=== PATIENT | female | born 1960 | race Caucasian/White ===

== ENCOUNTER → 2017-01-06 | Outpatient (CLI) | payer OTHER ==
[~2017-01-06] MED LIST: ATV5 PO; B-CO1CAP3 PO; CALC500C70 PO; CHOL100010 PO; CZR25 PO; MULT-506 PO; OXYC7.5T78 PO; SULF800T23 PO; TRAZ100T29 PO; VLT/75 PO
== END | disposition home or self-care (01) ==
LOC: C.PAPS 12:42
PROVIDERS: ATTEND Family Medicine
DX: Z12.4 Encounter for screening for malignant neoplasm of cervix (principal)

== ENCOUNTER 2023-05-04 17:13 | Inpatient (IN) ==
[2023-05-04] MEDS ORDERED: STAT IV Infusion **Titration per Protocol STA ×6 (17:21→23:53)
[2023-05-04] MEDS ORDERED: SODIUM CHLORIDE 0.9% 1,000 ML IV STA (17:23)
[2023-05-04] MEDS ORDERED: CALCIUM GLUCONATE 1,000 MG/60 ML BAG IV STA (17:26)
[2023-05-04] MEDS ORDERED: DEXTROSE 50% 50 ML SYRINGE IV ONE (17:29)
[2023-05-04] MEDS ORDERED: NovoLIN-R INSULIN PER UNIT CHARGE IV STA (17:29)
[2023-05-04] MEDS ORDERED: SODIUM BICARB 8.4% INJ 50 MEQ/50 ML SYR IV STA (17:29)
[2023-05-04] MEDS ORDERED: EPINEPHrine/NSS 4 MG/254 ML BAG IV SCH (17:30)
[2023-05-04] MEDS: EPINEPHrine/NSS 4 MG/254 ML BAG IV SCH (17:36)
[2023-05-04 17:37] LABS: iSTAT Creatinine 0.7 mg/dl (0.6-1.3); iSTAT Hemoglobin 13.6 g/dl (12.0-16.0); iSTAT Ionized Calcium 0.81 mmol/l (1.12-1.32)
[2023-05-04] MEDS ORDERED: STAT IV/IM STA (17:44)
[2023-05-04] MEDS ORDERED: SODIUM BICARBONATE 8.4% 150 MEQ in DEXTROSE 5% 1,000 ML IV SCH (17:45)
[2023-05-04] MEDS ORDERED: SODIUM ZIRCONIUM CYCLOSILICATE 10 GM PACKET GT STA (17:47)
--- NOTE | 2023-05-04 17:59 | XRay Report ---
SINGLE VIEW CHEST CLINICAL HISTORY: Atypical chest pain. Cardiac arrest. Respiratory failure. FINDINGS: An AP, portable, supine chest radiograph is obtained. No prior studies are available for co mparison at the time of dictation. An endotracheal tube has been placed. The tip projects approximate ly 5 cm above the annmarie. An enteric tube has been placed. The tip extends below the diaphragm over t he stomach. The cardiac silhouette appears mildly enlarged. There is pulmonary vascular congestion. T here are mild bilateral airspace opacities. No large pleural effusion or pneumothorax is seen. The sk eletal structures are osteopenic. The bony thorax is grossly intact. IMPRESSION: 1. Endotracheal and enteric tubes have been placed as above. 2. Cardiomegaly with pulmonary vascular congestion. 3. Bilateral airspace opacities likely represent mild pulmonary edema. Correlate clinically for evide nce of a superimposed infectious/inflammatory pneumonitis. Radiographic follow-up to resolution is re commended ACT 112: Negative or not required by law. Electronically signed by: Raymon Wilson M.D. 05/04/2023 5:58 PM
[2023-05-04 18:00] LABS: iSTAT Arterial Blood Gas HCO3 20 meg/L (19-24); iSTAT Arterial Blood Gas pCO2 82 mmHg (35-46); iSTAT Arterial Blood Gas pO2 202 mmHg (80-95); iSTAT Carbon Dioxide 23 mmol/L (24-31); iSTAT Hematocrit 32 % (37-47); iSTAT Hemoglobin 10.9 g/dl (12.0-16.0); iSTAT Potassium 3.4 mmol/L (3.3-5.0); iSTAT Sodium 127 mmol/L (135-144)
[2023-05-04 18:16] LABS: Appearance Urine Clear (Clear); Bacteria Urine Automated Negative (Negative); Bilirubin Urine Negative (Negative); Blood Urine 1+ (Negative); Color Urine Dark Yellow; Glucose Urine UA Trace (Negative); Ketones Urine 1+ (Negative); Leukocyte Esterase Urine Negative (Negative); Nitrite Urine Negative (Negative); Protein Urine 2+ (Negative); Specific Gravity Urine 1.016 (1.000-1.030); Urobilinogen Urine Negative (Negative)
[2023-05-04] MEDS: MAGNESIUM SULFATE / D5W 1 GM/100 ML BAG IV SCH ×2 (18:20→18:48)
--- NOTE | 2023-05-04 18:31 | History & Physical Report ---
Date of Service May 04, 2023 Assessment & Plan (1) Admitted to intensive care unit: (2) Cardiac arrest: (3) Alcohol use disorder: (4) Megaloblastic anemia due to alcoholism: (5) Thrombocytopenia: (6) Abnormal LFTs: (7) COVID-19 virus antibody negative: (8) Elevated troponin: Plan Admit to intensive care unit status postcardiac arrest- ROSC Hypothermic protocol Continue multiple IV pressors per ICU Pantoprazole 40 mg IV daily IV fluid rehydration with lactated Ringer's normal saline with potassium Thiamine IV and folic acid IV Keppra IV for seizure prophylaxis History of Present Illness Chief Complaint: The patient was brought to the emergency department by EMS, after being found unresponsive at home, with family reports that the patient has been going through alcohol withdrawal and refused to come to the hospital Primary Care Provider: Carol Terrell The patient is a 62-year-old female with past medical history of alcohol abuse and alcohol withdrawal. She had been found unresponsive at home, with family reported that she had been going through alcohol withdrawal and had refused to come to the hospital. She was noted to have seizure-like activity while in bed, and then became unresponsive. Family called 911, and was shocked by the AED brought in by police. Upon arrival in the ED, patient was asystolic, with epinephrine IV having been administered x 4 prior to arrival. Patient had been intubated, in addition received IV bicarbonate, IV magnesium, 1 episode of torsades. She was noted to have lost pulse several times, and then remained tachycardic and referred for evaluation for medical admission to the ICU. Laboratories are still pending at the time of admission, with admission being expedited to the ICU for further care Allergies Allergy/AdvReac Type Severity Reaction Status Date / Time nafcillin Allergy Intermediate RASH-PER Verified 05/04/23 17:30 [facility] RECORD Benzodiazepines AdvReac Intermediate AMNESIA-ATIVAN Verified 05/04/23 17:30 PER [facility] RECORD Home Medications Medication Instructions Recorded Confirmed Type Unobtainable 05/04/23 05/04/23 History Past Med/Surg History Social History Smoking Status: Unknown if ever smoked Hx Substance Use: Yes (alcohol) Review of Systems Review of Systems: HPI and ROS are limited due to patient status Physical Exam Physical Exam: The patient is sedated, intubated on ventilator HEENT--PERRL, EOMI, mucous membranes and oropharynx dry. Neck--supple. No JVD. No bruits. Thyroid normal, trachea midline, no adenopathy. Heart--tachycardic Lungs--few coarse breath sounds bilaterally Abdomen--normal bowel sounds and soft. Extremities-- No edema. Dermatologic--normal skin turgor, normal color, no abnormal lymph nodes, no rash. Neurologic--limited exam Rheumatologic--limited exam Psychiatric--sedated and intubated Results & Data Results & Data Vital Signs (Past 12 Hours) Vital Signs Temp Pulse Pulse Resp BP BP Pulse Ox 05/04/23 18:25 100 05/04/23 18:21 100 05/04/23 18:11 05/04/23 18:02 126 H 05/04/23 18:01 28 H 05/04/23 17:55 103/68 05/04/23 17:55 36.6 C 126 H 28 H 100 05/04/23 17:53 36.6 C 124 H 28 H 99 05/04/23 17:53 66/38 L 05/04/23 17:50 64/38 L 05/04/23 17:50 36.6 C 119 H 28 H 100 05/04/23 17:45 122 H 23 100 05/04/23 17:45 92/59 L 05/04/23 17:40 118 H 22 99 05/04/23 17:40 124/78 05/04/23 17:40 120 H 22 134/79 98 05/04/23 17:39 134/79 05/04/23 17:39 104 H 13 98 05/04/23 17:35 142 H 7 L 05/04/23 17:30 70 22 35 L 05/04/23 17:25 122 H 22 99 05/04/23 17:23 64 05/04/23 17:22 122 H 17 80 L 05/04/23 17:20 143 H 16 05/04/23 17:19 145 H 14 O2 Del Method FiO2 05/04/23 18:25 70 05/04/23 18:21 Mechanical Vent 05/04/23 18:11 Mechanical Vent 05/04/23 18:02 05/04/23 18:01 100 05/04/23 17:55 05/04/23 17:55 05/04/23 17:53 05/04/23 17:53 05/04/23 17:50 05/04/23 17:50 05/04/23 17:45 05/04/23 17:45 05/04/23 17:40 05/04/23 17:40 05/04/23 17:40 Mechanical Vent 05/04/23 17:39 05/04/23 17:39 05/04/23 17:35 05/04/23 17:30 05/04/23 17:25 100 05/04/23 17:23 05/04/23 17:22 100 05/04/23 17:20 05/04/23 17:19 Code Status & VTE Plan Code Status Full code VTE Prophylaxis Plan VTE Prophylaxis will be ordered: Yes Critical Care Time 40 minutes PG Care Time/CCT Total # of Minutes Spent Total Time Spent with Patient: Total time spent is greater than 50% in coordination of care (as documented) at patient's floor/unit and/or counseling patient: Coding Level of Care Code 09759 INT INP/OBS CARE 3/75MIN Diagnoses Admitted to intensive care unit Z78.9 Cardiac arrest I46.9 Alcohol use disorder F10.90 Megaloblastic anemia due to alcoholism D53.1 Thrombocytopenia D69.6 Abnormal LFTs R79.89 COVID-19 virus antibody negative Z01.84 Elevated troponin R79.89
[2023-05-04 18:35] LABS: iSTAT Arterial Blood Gas HCO3 18 meg/L (19-24); iSTAT Arterial Blood Gas pCO2 47 mmHg (35-46); iSTAT Arterial Blood Gas pH 7.19 (7.35-7.45); iSTAT Arterial Blood Gas pO2 > 420 mmHg (80-95); iSTAT Carbon Dioxide 20 mmol/L (24-31); iSTAT Hematocrit 33 % (37-47); iSTAT Hemoglobin 11.2 g/dl (12.0-16.0); iSTAT Potassium 2.4 mmol/L (3.3-5.0); iSTAT Sodium 132 mmol/L (135-144)
[2023-05-04 18:47] LABS: INR 1.4 (0.9-1.1); Partial Thromboplastin Ratio 1.6; Partial Thromboplastin Time 45 Seconds (21-31); Prothrombin Time 15.2 Seconds (9.0-12.0)
[2023-05-04] MEDS: POTASSIUM CHLORIDE / WTR 10 MEQ/100 ML PLCT IV SCH ×2 (18:49→20:00)
--- NOTE | 2023-05-04 18:53 | Emergency Department Note ---
Impression & Plan Cardiac arrest, Anoxic brain injury ED Provider Note CHIEF COMPLAINT: Cardiac arrest HISTORY OF PRESENT ILLNESS: This 62-year-old female patient with past medical history of alcohol abuse presents to the emergency department after becoming unresponsive at home. The patient was apparently "going through alcohol withdrawal" and refused to come to the hospital per her family. She was lying in bed, had some sudden seizure-like activity and became unresponsive. Family called 911, the patient was shocked by the AED that police came with. Upon EMS arrival, the patient was noted to be asystolic. CPR was in progress and IV epinephrine was administered x 4 prior to arrival. By my medical command, the patient was given IV bicarb and magnesium. She did have an episode of torsades in route and was shocked. Patient lost her pulse on several occasions. Patient arrives with a palpable pulse, intubated with a Saurabh still in place, but on hold. REVIEW OF SYSTEMS: A review of systems was performed with positives and pertinent negatives listed in the history of present illness. 10 systems were reviewed and are otherwise negative. ALLERGIES: see below MEDICATIONS: see below PMH: see below SOCIAL HISTORY: see below DDx: Pulmonary embolus, electrolyte abnormality, dehydration, alcohol withdrawal, seizure, cardiac arrhythmia among others. PHYSICAL EXAM: Vital signs reviewed. General: Critically ill 62-year-old female, intubated and unresponsive HEENT: No scleral icterus, pupils are essentially nonreactive, neck supple. Atraumatic. Cardiovascular: Distant heart tones, barely audible. Palpable left femoral pulse Pulmonary: Clear to auscultation bilaterally, normal work of breathing. Abdomen: Soft, nontender, nondistended, positive bowel sounds. Musculoskeletal: Atraumatic, no peripheral edema. Cachectic Neurologic: Unresponsive Skin: Warm, dry, no rash EMERGENCY DEPARTMENT COURSE/MDM: This patient was evaluated and appeared to be in no significant distress. IV access was obtained and laboratory work was drawn. The patient was placed on the panel monitor noted to be in a tachycardic rhythm, wide-complex. Pulses were palpated. The patient did quickly lose her pulse during her assessments. chest compressions were reinitiated. Patient is noted to be in a wide-complex tachycardia on EKG. Bedside ultrasound was used to evaluate cardiac function, does not appear to be in cardiac tamponade. There is minimal ejection fraction noted with cardiac activity. IV epinephrine drip was initiated with the assistance of the clinical pharmacist. Patient did receive treatment for hyperkalemia based on i-STAT labs. Patient's potassium was 7. IV D50, IV regular insulin 10 units, calcium gluconate were administered. IV hydration was in progress with normal saline solution. ABG was performed at the bedside by respiratory therapy and the potassium was noted to be normal. Adjustments were made to the patient's ventilator. Repeat ABG was performed and the potassium was noted to be low. 20 mEq of IV potassium was ordered intravenously. In retrospect the i-STAT labs were likely hemolyzed and inaccurate. Potassium on laboratory work is 2.2. Patient is noted to be hyponatremic due to the nature of the arrest, a code artic was ordered. Patient's case was discussed with Dr. Brasher of the intensive care unit. [facility] was consulted as well, Dr. Turcios. CT imaging of the head was performed and reveals findings consistent with anoxic brain injury. Chest CT was performed and reveals no PE, fractured ribs, likely cirrhosis with ascites. At the request of the intensive care service, Dr. Phillips of the interventional cardiology team was consulted. He did review the patient's EKG. He feels the patient can be stabilized overnight and he will evaluate for the possibility of the Lease Administrator tomorrow morning. Patient's family was updated as to the findings and plan of care. She remains critically ill and they have expressed an understanding. MONITORING: An order for cardiac monitoring was placed and the patient is noted to be in a sinus tachycardia at 143 beats per minute. RADIOLOGY: Chest x-ray to my interpretation reveals ET tube in good position, pulmonary vascular congestion. Head CT to my review and radiology's over read reveals evidence of anoxic brain injury and bilateral basal ganglia infarcts Chest CT per radiology reveals no evidence of PE, there is evidence of rib fractures, likely cirrhosis of the liver with ascites. Please see final reads below. EKG: To my interpretation reveals a sinus tachycardia at 148 bpm. Wide-complex with intraventricular conduction block, left axis deviation. Nonspecific ST changes. DISPOSITION: Admission I have personally spent greater than 75 minutes of critical care time in the direct management of this patient. This includes bedside care, interpretation of diagnostic studies, and testing, discussion with consultants, patient, and family members, and other required patient management activities. This 75 minutes is in excess of all separately billable procedures. Past Med/Surg History Medical History (Updated 05/07/23 @ 11:01 by Lizzie Vail MD) ETOH abuse Seizure (12/06/13) Right foot pain Osteomyelitis Leg pain, right Leg pain, right Hypokalemia Dehydration Alcohol withdrawal Family History Other Heart disease Hypertension Social History Smoking Status: Unknown if ever smoked Preferred Language: Serbian Communication Ability: Unable Business System Consultant Required: No Beliefs That Will Affect Care: None marital status: Current Living Situation: Spouse Current Living Situation Comment: Feels safe at home current occupational status: unemployed Feels Safe at Home: Yes Allergies Allergies Allergy/AdvReac Type Severity Reaction Status Date / Time cephalexin Allergy Intermediate HIVES Verified 05/05/23 08:27 nafcillin Allergy Unknown unknown Verified 05/05/23 08:27 Benzodiazepines AdvReac Severe CHANGE IN Verified 05/05/23 08:27 MENTAL STATUS tramadol AdvReac Unknown HALLUCINATI Unverified 05/05/23 08:27 ONS Home Meds Home Medications Medication Instructions Recorded Confirmed multivitamin 1 tab PO QAM #0 tabs 10/02/14 01/24/20 Quercetin 1,000 mg PO DAILY 01/24/20 01/24/20 cholecalciferol (vitamin D3) 10 10 mcg PO DAILY 01/24/20 01/24/20 mcg (400 unit) tablet gabapentin 300 mg capsule 300 mg PO HS 01/24/20 01/24/20 hydroxyzine pamoate 50 mg capsule 50 mg PO TID PRN Anxiety 01/24/20 01/24/20 zinc 50 mg tablet 50 mg PO DAILY 01/24/20 01/24/20 Unobtainable 05/04/23 05/04/23 Previous Rx's Medication Instructions Recorded oxycodone 5 mg tablet 5 mg PO Q4H PRN pain #15 tabs 01/24/20 Results & Data (ED) Vital Signs Vital Signs - 24 hr 05/04/23 17:19 05/04/23 17:20 05/04/23 17:22 Temperature Pulse Rate 145 H 143 H 122 H Pulse Rate [Radial] Pulse Rate from SpO2 Sensor Respiratory Rate 14 16 17 Blood Pressure Blood Pressure [Left Arm] Blood Pressure Mean Blood Pressure Mean [Left Arm] Pulse Oximetry 80 L Oxygen Delivery Method Fraction of Inspired Oxygen 100 Sepsis Recent Fever Within 48 Hours Sepsis New/Unexplained Change in Mental Status Sepsis Action Taken by Nursing End-Tidal CO2 47 61 60 05/04/23 17:23 05/04/23 17:25 05/04/23 17:30 Temperature Pulse Rate 64 122 H 70 Pulse Rate [Radial] Pulse Rate from SpO2 Sensor 158 H Respiratory Rate 22 22 Blood Pressure Blood Pressure [Left Arm] Blood Pressure Mean Blood Pressure Mean [Left Arm] Pulse Oximetry 99 35 L Oxygen Delivery Method Fraction of Inspired Oxygen 100 Sepsis Recent Fever Within 48 Hours No Sepsis New/Unexplained Change in Mental Status Yes Sepsis Action Taken by Nursing No Action Required End-Tidal CO2 53 13 05/04/23 17:35 05/04/23 17:39 05/04/23 17:39 Temperature Pulse Rate 142 H 104 H Pulse Rate [Radial] Pulse Rate from SpO2 Sensor 103 H Respiratory Rate 7 L 13 Blood Pressure 134/79 Blood Pressure [Left Arm] Blood Pressure Mean 115 Blood Pressure Mean [Left Arm] Pulse Oximetry 98 Oxygen Delivery Method Fraction of Inspired Oxygen Sepsis Recent Fever Within 48 Hours Sepsis New/Unexplained Change in Mental Status Sepsis Action Taken by Nursing End-Tidal CO2 49 52 05/04/23 17:40 05/04/23 17:40 05/04/23 17:40 Temperature Pulse Rate 118 H Pulse Rate [Radial] 120 H Pulse Rate from SpO2 Sensor 117 H Respiratory Rate 22 22 Blood Pressure 124/78 Blood Pressure [Left Arm] 134/79 Blood Pressure Mean 79 Blood Pressure Mean [Left Arm] 97 Pulse Oximetry 98 99 Oxygen Delivery Method Mechanical Vent Fraction of Inspired Oxygen Sepsis Recent Fever Within 48 Hours Sepsis New/Unexplained Change in Mental Status Sepsis Action Taken by Nursing End-Tidal CO2 60 05/04/23 17:45 05/04/23 17:45 05/04/23 17:50 Temperature 36.6 C Pulse Rate 122 H 119 H Pulse Rate [Radial] Pulse Rate from SpO2 Sensor 122 H 69 Respiratory Rate 23 28 H Blood Pressure 92/59 L Blood Pressure [Left Arm] Blood Pressure Mean 62 Blood Pressure Mean [Left Arm] Pulse Oximetry 100 100 Oxygen Delivery Method Fraction of Inspired Oxygen Sepsis Recent Fever Within 48 Hours Sepsis New/Unexplained Change in Mental Status Sepsis Action Taken by Nursing End-Tidal CO2 52 38 05/04/23 17:50 05/04/23 17:53 05/04/23 17:53 Temperature 36.6 C Pulse Rate 124 H Pulse Rate [Radial] Pulse Rate from SpO2 Sensor 89 Respiratory Rate 28 H Blood Pressure 64/38 L 66/38 L Blood Pressure [Left Arm] Blood Pressure Mean 45 43 Blood Pressure Mean [Left Arm] Pulse Oximetry 99 Oxygen Delivery Method Fraction of Inspired Oxygen Sepsis Recent Fever Within 48 Hours Sepsis New/Unexplained Change in Mental Status Sepsis Action Taken by Nursing End-Tidal CO2 39 05/04/23 17:55 05/04/23 17:55 05/04/23 18:00 Temperature 36.6 C Pulse Rate 126 H Pulse Rate [Radial] Pulse Rate from SpO2 Sensor 126 H Respiratory Rate 28 H Blood Pressure 103/68 135/92 Blood Pressure [Left Arm] Blood Pressure Mean 76 98 Blood Pressure Mean [Left Arm] Pulse Oximetry 100 Oxygen Delivery Method Fraction of Inspired Oxygen Sepsis Recent Fever Within 48 Hours Sepsis New/Unexplained Change in Mental Status Sepsis Action Taken by Nursing End-Tidal CO2 41 05/04/23 18:00 05/04/23 18:01 05/04/23 18:02 Temperature 36.4 C L Pulse Rate 126 H 126 H Pulse Rate [Radial] Pulse Rate from SpO2 Sensor 126 H Respiratory Rate 28 H 28 H Blood Pressure Blood Pressure [Left Arm] Blood Pressure Mean Blood Pressure Mean [Left Arm] Pulse Oximetry 100 Oxygen Delivery Method Fraction of Inspired Oxygen 100 Sepsis Recent Fever Within 48 Hours Sepsis New/Unexplained Change in Mental Status Sepsis Action Taken by Nursing End-Tidal CO2 37 05/04/23 18:05 05/04/23 18:05 05/04/23 18:10 Temperature 36.1 C L Pulse Rate 130 H Pulse Rate [Radial] Pulse Rate from SpO2 Sensor 128 H Respiratory Rate 26 H Blood Pressure 149/105 H 164/114 H Blood Pressure [Left Arm] Blood Pressure Mean 117 129 Blood Pressure Mean [Left Arm] Pulse Oximetry 93 Oxygen Delivery Method Fraction of Inspired Oxygen Sepsis Recent Fever Within 48 Hours Sepsis New/Unexplained Change in Mental Status Sepsis Action Taken by Nursing End-Tidal CO2 38 05/04/23 18:10 05/04/23 18:11 05/04/23 18:15 Temperature 35.8 C L Pulse Rate 129 H Pulse Rate [Radial] Pulse Rate from SpO2 Sensor 129 H Respiratory Rate 26 H Blood Pressure 147/118 H Blood Pressure [Left Arm] Blood Pressure Mean 135 Blood Pressure Mean [Left Arm] Pulse Oximetry 100 Oxygen Delivery Method Mechanical Vent Fraction of Inspired Oxygen Sepsis Recent Fever Within 48 Hours Sepsis New/Unexplained Change in Mental Status Sepsis Action Taken by Nursing End-Tidal CO2 33 05/04/23 18:15 05/04/23 18:20 05/04/23 18:20 Temperature 35.6 C L 35.4 C L Pulse Rate 125 H 121 H Pulse Rate [Radial] Pulse Rate from SpO2 Sensor 125 H 122 H Respiratory Rate 26 H 30 H Blood Pressure 155/105 H Blood Pressure [Left Arm] Blood Pressure Mean 120 Blood Pressure Mean [Left Arm] Pulse Oximetry 100 100 Oxygen Delivery Method Fraction of Inspired Oxygen Sepsis Recent Fever Within 48 Hours Sepsis New/Unexplained Change in Mental Status Sepsis Action Taken by Nursing End-Tidal CO2 33 31 05/04/23 18:21 05/04/23 18:25 05/04/23 18:25 Temperature Pulse Rate Pulse Rate [Radial] Pulse Rate from SpO2 Sensor Respiratory Rate Blood Pressure 159/107 H Blood Pressure [Left Arm] Blood Pressure Mean 123 Blood Pressure Mean [Left Arm] Pulse Oximetry 100 100 Oxygen Delivery Method Mechanical Vent Fraction of Inspired Oxygen 70 Sepsis Recent Fever Within 48 Hours Sepsis New/Unexplained Change in Mental Status Sepsis Action Taken by Nursing End-Tidal CO2 33 05/04/23 18:25 05/04/23 18:30 05/04/23 18:30 Temperature 35.3 C L 35.2 C L Pulse Rate 120 H 117 H Pulse Rate [Radial] Pulse Rate from SpO2 Sensor 121 H 118 H Respiratory Rate 29 H 20 Blood Pressure 148/99 H Blood Pressure [Left Arm] Blood Pressure Mean 111 Blood Pressure Mean [Left Arm] Pulse Oximetry 100 100 Oxygen Delivery Method Fraction of Inspired Oxygen Sepsis Recent Fever Within 48 Hours Sepsis New/Unexplained Change in Mental Status Sepsis Action Taken by Nursing End-Tidal CO2 33 29 Home Medications Current Medication List: was personally reviewed by me Laboratory Data Attestation: I reviewed the patient's lab results. 05/05/23 14:39 05/05/23 08:29 Lab Results 05/04/23 05/04/23 05/04/23 Range/Units 17:20 17:25 17:30 WBC Cancelled RBC Cancelled Hgb Cancelled POC Hgb 13.6 (12.0-16.0) g/dl Hct Cancelled POC Hct 40 (37-47) % MCV Cancelled MCH Cancelled MCHC Cancelled RDW Std Deviation Cancelled RDW Coeff of Zach Cancelled Plt Count Cancelled MPV Cancelled Immature Gran % (Auto) Cancelled Neut % (Auto) Cancelled Lymph % (Auto) Cancelled [place] % (Auto) Cancelled Eos % (Auto) Cancelled Baso % (Auto) Cancelled Neut # (Auto) Cancelled Lymph # (Auto) Cancelled [place] # (Auto) Cancelled Eos # (Auto) Cancelled Baso # (Auto) Cancelled Immature Gran # (Auto) Cancelled Absolute Nucleated RBC Cancelled Nucleated RBC % (auto) Cancelled Neutrophils % (Manual) Cancelled Band Neutrophils % Cancelled Lymphocytes % (Manual) Cancelled Prolymphocyte % Cancelled Reactive Lymphs % (Man) Cancelled Monocytes % (Manual) Cancelled Eosinophils % (Manual) Cancelled Basophils % (Manual) Cancelled Metamyelocytes % (Man) Cancelled Myelocytes % (Man) Cancelled Promyelocytes % (Man) Cancelled Blast Cells % (Manual) Cancelled Plasma Cell % (Manual) Cancelled Other Cells % Cancelled Nucleated RBC % Cancelled Neutrophils # (Manual) Cancelled Band Neutrophils # Cancelled Total Absolute Neuts Cancelled Lymphocytes # (Manual) Cancelled Prolymphocyte # Cancelled Reactive Lymphs # Cancelled Total Abs Lymphocytes Cancelled Monocytes # (Manual) Cancelled Eosinophils # (Manual) Cancelled Basophils # (Manual) Cancelled Metamyelocytes # (Man) Cancelled Myelocytes # (Manual) Cancelled Promyelocytes # (Man) Cancelled Blast Cells # (Man) Cancelled Plasma Cell # (Manual) Cancelled Other Cells # Cancelled Nucleated RBCs # (Man) Cancelled Hypersegmented Neuts Cancelled Hyposegmented Neuts Cancelled Hypogranular Neuts Cancelled Large Granular Lymphs Cancelled # Lrg Granular Lymphs Cancelled Hairy Cells Cancelled Smudge Cells Cancelled Toxic Granulation Cancelled Toxic Vacuolation Cancelled Dohle Bodies Cancelled Lawanda Rods Cancelled Platelet Estimate Cancelled Hypogranular Platelets Cancelled Giant Platelets Cancelled Platelet Satelliting Cancelled RBC Morphology Cancelled Polychromasia Cancelled Hypochromasia Cancelled Poikilocytosis Cancelled Basophilic Stippling Cancelled Anisocytosis Cancelled Microcytosis Cancelled Macrocytosis Cancelled Spherocytes Cancelled Pappenheimer Bodies Cancelled Sickle Cells Cancelled Target Cells Cancelled Tear Drop Cells Cancelled Ovalocytes Cancelled Stomatocytes Cancelled Schultz-Dod[place] Branch Bodies Cancelled Echinocytes Cancelled Acanthocytes (Spur) Cancelled Rouleaux Cancelled RBC Agglutinates Cancelled Schistocytes Cancelled Sezary Cell Cancelled PT Cancelled INR Cancelled APTT Cancelled PTT Ratio Cancelled Fibrinogen (184-400) mg/dl POC pH (7.35-7.45) POC pCO2 (35-46) mmHg POC pO2 (80-95) mmHg POC HCO3 (19-24) glenn/L POC Base Excess (-9-1.8) glenn/L POC ABG O2 Sat (90-95) % POC Sodium 124 L (135-144) mmol/L Sodium Cancelled POC Potassium 7.0 H* (3.3-5.0) mmol/L Potassium Cancelled POC Chloride 95 L (101-112) mmol/L Chloride Cancelled Carbon Dioxide Cancelled POC Total CO2 20 L (24-31) mmol/L Anion Gap Cancelled POC Anion Gap 18.0 (16-25) mmol/L POC BUN 9 (7-18) mg/dl BUN Cancelled Creatinine Cancelled POC Creatinine 0.7 (0.6-1.3) mg/dl Est Cr Clr Drug Dosing Cancelled Est GFR ( Amer) Cancelled Est GFR (Non-Af Amer) Cancelled BUN/Creatinine Ratio Cancelled Glucose Cancelled POC Glucose (other) 248 H (70-99) mg/dl Calcium Cancelled POC Ioniz Calcium [place] 0.81 L (1.12-1.32) mmol/l Phosphorus Cancelled Magnesium Cancelled Total Bilirubin Cancelled AST Cancelled ALT Cancelled Alkaline Phosphatase Cancelled Troponin I High Sens Cancelled Total Protein Cancelled Albumin Cancelled Globulin Cancelled Albumin/Globulin Ratio Cancelled Lipase Cancelled Urine Color Dark Yellow Urine Appearance Clear (Clear) Urine pH 6.0 (4.5-7.5) Ur Specific [place] 1.016 (1.000-1.030) Urine Protein 2+ H (Negative) Urine Glucose (UA) Trace H (Negative) Urine Ketones 1+ H (Negative) Urine Blood 1+ H (Negative) Urine Nitrite Negative (Negative) Urine Bilirubin Negative (Negative) Urine Urobilinogen Negative (Negative) Ur Leukocyte Esterase Negative (Negative) Urine WBC (Auto) 1-5 (0-5) /hpf Urine RBC (Auto) 5-10 H (0-4) /hpf U Hyaline Cast (Auto) 1-5 (0-5) /lpf U Epithel Cells (Auto) 10-20 H (0-5) /lpf Urine Bacteria (Auto) Negative (Negative) SARS-CoV-2 (PCR) (Negative) Blood Parasites ID Cancelled Blood Type Antibody Screen Antibody Identification Antibody ID Comment Crossmatch 05/04/23 05/04/23 05/04/23 Range/Units 17:46 17:58 17:59 WBC 10.27 RBC 3.11 L Hgb 10.7 L POC Hgb 10.9 L (12.0-16.0) g/dl Hct 32.9 L POC Hct 32 L (37-47) % MCV 105.8 H MCH 34.4 H MCHC 32.5 RDW Std Deviation 46.3 RDW Coeff of Zach 11.9 Plt Count 57 L MPV 11.5 Immature Gran % (Auto) 4.0 Neut % (Auto) 73.6 Lymph % (Auto) 20.3 [place] % (Auto) 1.5 Eos % (Auto) 0.3 Baso % (Auto) 0.3 Neut # (Auto) 7.57 H Lymph # (Auto) 2.08 [place] # (Auto) 0.15 Eos # (Auto) 0.03 Baso # (Auto) 0.03 Immature Gran # (Auto) 0.41 H Absolute Nucleated RBC 0.02 Nucleated RBC % (auto) 0.2 Neutrophils % (Manual) Band Neutrophils % Lymphocytes % (Manual) Prolymphocyte % Reactive Lymphs % (Man) Monocytes % (Manual) Eosinophils % (Manual) Basophils % (Manual) Metamyelocytes % (Man) Myelocytes % (Man) Promyelocytes % (Man) Blast Cells % (Manual) Plasma Cell % (Manual) Other Cells % Nucleated RBC % Neutrophils # (Manual) Band Neutrophils # Total Absolute Neuts Lymphocytes # (Manual) Prolymphocyte # Reactive Lymphs # Total Abs Lymphocytes Monocytes # (Manual) Eosinophils # (Manual) Basophils # (Manual) Metamyelocytes # (Man) Myelocytes # (Manual) Promyelocytes # (Man) Blast Cells # (Man) Plasma Cell # (Manual) Other Cells # Nucleated RBCs # (Man) Hypersegmented Neuts Hyposegmented Neuts Hypogranular Neuts Large Granular Lymphs # Lrg Granular Lymphs Hairy Cells Smudge Cells Toxic Granulation Toxic Vacuolation Dohle Bodies Lawanda Rods Platelet Estimate Hypogranular Platelets Giant Platelets Platelet Satelliting RBC Morphology Polychromasia Hypochromasia Poikilocytosis Basophilic Stippling Anisocytosis Microcytosis Macrocytosis Spherocytes Pappenheimer Bodies Sickle Cells Target Cells Tear Drop Cells Ovalocytes Stomatocytes Schultz-Dod[place] Branch Bodies Echinocytes Acanthocytes (Spur) Rouleaux RBC Agglutinates Schistocytes Sezary Cell PT 15.2 H INR 1.4 H APTT 45 H PTT Ratio 1.6 Fibrinogen 112 L (184-400) mg/dl POC pH 7.00 L* (7.35-7.45) POC pCO2 82 H (35-46) mmHg POC pO2 202 H (80-95) mmHg POC HCO3 20 (19-24) glenn/L POC Base Excess -11.0 L (-9-1.8) glenn/L POC ABG O2 Sat 99.0 H (90-95) % POC Sodium 127 L (135-144) mmol/L Sodium 131 L POC Potassium 3.4 (3.3-5.0) mmol/L Potassium 3.0 L POC Chloride (101-112) mmol/L Chloride 94 L Carbon Dioxide 20 L POC Total CO2 23 L (24-31) mmol/L Anion Gap 17 H POC Anion Gap (16-25) mmol/L POC BUN (7-18) mg/dl BUN 10 Creatinine 0.82 POC Creatinine (0.6-1.3) mg/dl Est Cr Clr Drug Dosing 81.1 Est GFR ( Amer) 87.6 Est GFR (Non-Af Amer) 75.6 BUN/Creatinine Ratio 12.2 Glucose 364 H* POC Glucose (other) (70-99) mg/dl Calcium 9.8 POC Ioniz Calcium [place] (1.12-1.32) mmol/l Phosphorus 9.3 H Magnesium 2.9 H Total Bilirubin 1.1 H AST 361 H ALT 136 H Alkaline Phosphatase 62 Troponin I High Sens 965.4 H* Total Protein 5.4 L Albumin 2.9 L Globulin 2.5 Albumin/Globulin Ratio 1.2 Lipase 155 H Urine Color Urine Appearance (Clear) Urine pH (4.5-7.5) Ur Specific [place] (1.000-1.030) Urine Protein (Negative) Urine Glucose (UA) (Negative) Urine Ketones (Negative) Urine Blood (Negative) Urine Nitrite (Negative) Urine Bilirubin (Negative) Urine Urobilinogen (Negative) Ur Leukocyte Esterase (Negative) Urine WBC (Auto) (0-5) /hpf Urine RBC (Auto) (0-4) /hpf U Hyaline Cast (Auto) (0-5) /lpf U Epithel Cells (Auto) (0-5) /lpf Urine Bacteria (Auto) (Negative) SARS-CoV-2 (PCR) (Negative) Blood Parasites ID Blood Type A Negative Antibody Screen POSITIVE A Antibody Identification Anti-D Antibody ID Comment Crossmatch See Detail 05/04/23 05/04/23 Range/Units 18:00 18:20 WBC RBC Hgb POC Hgb 11.2 L (12.0-16.0) g/dl Hct POC Hct 33 L (37-47) % MCV MCH MCHC RDW Std Deviation RDW Coeff of Zach Plt Count MPV Immature Gran % (Auto) Neut % (Auto) Lymph % (Auto) [place] % (Auto) Eos % (Auto) Baso % (Auto) Neut # (Auto) Lymph # (Auto) [place] # (Auto) Eos # (Auto) Baso # (Auto) Immature Gran # (Auto) Absolute Nucleated RBC Nucleated RBC % (auto) Neutrophils % (Manual) Band Neutrophils % Lymphocytes % (Manual) Prolymphocyte % Reactive Lymphs % (Man) Monocytes % (Manual) Eosinophils % (Manual) Basophils % (Manual) Metamyelocytes % (Man) Myelocytes % (Man) Promyelocytes % (Man) Blast Cells % (Manual) Plasma Cell % (Manual) Other Cells % Nucleated RBC % Neutrophils # (Manual) Band Neutrophils # Total Absolute Neuts Lymphocytes # (Manual) Prolymphocyte # Reactive Lymphs # Total Abs Lymphocytes Monocytes # (Manual) Eosinophils # (Manual) Basophils # (Manual) Metamyelocytes # (Man) Myelocytes # (Manual) Promyelocytes # (Man) Blast Cells # (Man) Plasma Cell # (Manual) Other Cells # Nucleated RBCs # (Man) Hypersegmented Neuts Hyposegmented Neuts Hypogranular Neuts Large Granular Lymphs # Lrg Granular Lymphs Hairy Cells Smudge Cells Toxic Granulation Toxic Vacuolation Dohle Bodies Lawanda Rods Platelet Estimate Hypogranular Platelets Giant Platelets Platelet Satelliting RBC Morphology Polychromasia Hypochromasia Poikilocytosis Basophilic Stippling Anisocytosis Microcytosis Macrocytosis Spherocytes Pappenheimer Bodies Sickle Cells Target Cells Tear Drop Cells Ovalocytes Stomatocytes Schultz-Dodson Branch Bodies Echinocytes Acanthocytes (Spur) Rouleaux RBC Agglutinates Schistocytes Sezary Cell PT INR APTT PTT Ratio Fibrinogen (184-400) mg/dl POC pH 7.19 L* (7.35-7.45) POC pCO2 47 H (35-46) mmHg POC pO2 > 420 H (80-95) mmHg POC HCO3 18 L (19-24) glenn/L POC Base Excess -10.0 L (-9-1.8) glenn/L POC ABG O2 Sat 100.0 H (90-95) % POC Sodium 132 L (135-144) mmol/L Sodium POC Potassium 2.4 L* (3.3-5.0) mmol/L Potassium POC Chloride (101-112) mmol/L Chloride Carbon Dioxide POC Total CO2 20 L (24-31) mmol/L Anion Gap POC Anion Gap (16-25) mmol/L POC BUN (7-18) mg/dl BUN Creatinine POC Creatinine (0.6-1.3) mg/dl Est Cr Clr Drug Dosing Est GFR ( Amer) Est GFR (Non-Af Amer) BUN/Creatinine Ratio Glucose POC Glucose (other) (70-99) mg/dl Calcium POC Ioniz Calcium [place] (1.12-1.32) mmol/l Phosphorus Magnesium Total Bilirubin AST ALT Alkaline Phosphatase Troponin I High Sens Total Protein Albumin Globulin Albumin/Globulin Ratio Lipase Urine Color Urine Appearance (Clear) Urine pH (4.5-7.5) Ur Specific [place] (1.000-1.030) Urine Protein (Negative) Urine Glucose (UA) (Negative) Urine Ketones (Negative) Urine Blood (Negative) Urine Nitrite (Negative) Urine Bilirubin (Negative) Urine Urobilinogen (Negative) Ur Leukocyte Esterase (Negative) Urine WBC (Auto) (0-5) /hpf Urine RBC (Auto) (0-4) /hpf U Hyaline Cast (Auto) (0-5) /lpf U Epithel Cells (Auto) (0-5) /lpf Urine Bacteria (Auto) (Negative) SARS-CoV-2 (PCR) NEGATIVE (Negative) Blood Parasites ID Blood Type Antibody Screen Antibody Identification Antibody ID Comment Crossmatch Administered Medications Discontinued Medications Acetaminophen (Acetaminophen 1000 Mg/100 Ml Iv) 1,000 mg IV Q8H PRN PRN Reason: Pain or Fever Stop: 05/07/23 20:09 Last Admin: 05/05/23 14:29 Dose: 1,000 mg Documented By: HLK Calcium Chloride (Calcium Chloride 10% 10 Ml Syr) Confirm Administered Dose 1,000 mg IV .STK-MED ONE Stop: 05/05/23 03:08 Last Admin: 05/05/23 03:25 Dose: Not Given Documented By: CP Dextrose (Dextrose 50% 50 Ml Syringe) 50 ml IV NOW ONE Stop: 05/04/23 17:30 Last Admin: 05/04/23 17:31 Dose: 50 ml Documented By: AM Enoxaparin Sodium (Enoxaparin Inj 40 Mg/0.4 Ml Syr) 40 mg SQ Q24H [facility] Stop: 06/03/23 20:59 Last Admin: 05/04/23 23:28 Dose: Not Given Documented By: TLM Fentanyl Citrate (Fentanyl Citrate 2,500 Mcg/250 Ml Bag) Confirm Administered Dose 2,500 mcg IV .STK-MED ONE Stop: 05/05/23 17:30 Last Admin: 05/05/23 17:46 Dose: Not Given Documented By: SKYEK Epinephrine HCl () 4 mg in 254 mls @ 34.1 mls/hr IV .Q7H27M [facility]; Protocol Stop: 06/03/23 17:29 Last Admin: 05/05/23 10:13 Dose: Not Given Documented By: Admin: 05/05/23 00:39 Dose: Not Given Documented By: Titration: 05/04/23 21:45 Dose: Infused Documented By: Titration: 05/04/23 18:28 Dose: 0.18 mcg/kg/min, 61.4 mls/hr Documented By: Titration: 05/04/23 18:17 Dose: 0.2 mcg/kg/min, 68.2 mls/hr Documented By: Titration: 05/04/23 18:14 Dose: 0.25 mcg/kg/min, 85.2 mls/hr Documented By: Titration: 05/04/23 17:53 Dose: 0.3 mcg/kg/min, 102.3 mls/hr Documented By: Titration: 05/04/23 17:52 Dose: 0.2 mcg/kg/min, 68.2 mls/hr Documented By: Admin: 05/04/23 17:36 Dose: 0.1 mcg/kg/min, 34.1 mls/hr Documented By: AM Co-signed By: ASW Sodium Chloride (Nss) 1,000 mls @ 999 mls/hr IV .Q1H1M [facility] Stop: 05/04/23 18:23 Last Infusion: 05/04/23 18:30 Dose: Infused Documented By: Admin: 05/04/23 17:15 Dose: 999 mls/hr Documented By: AM Magnesium Sulfate/Dextrose (Magnesium Sulfate / D5w) 1 gm in 100 mls @ 200 mls/hr IV Q30M [facility] Stop: 05/04/23 18:25 Last Infusion: 05/05/23 00:40 Dose: Infused Documented By: Admin: 05/04/23 18:48 Dose: 200 mls/hr Documented By: Infusion: 05/04/23 18:48 Dose: Infused Documented By: Admin: 05/04/23 18:20 Dose: 200 mls/hr Documented By: AM Sodium Bicarbonate 150 meq/ (Dextrose) 1,150 mls @ 125 mls/hr IV .Q9H12M [facility] Stop: 06/03/23 17:44 Last Infusion: 05/05/23 00:41 Dose: Infused Documented By: Admin: 05/04/23 18:14 Dose: 125 mls/hr Documented By: AM Potassium Chloride (K Jay / Wtr) 10 meq in 100 mls @ 100 mls/hr IV Q1H [facility] Stop: 05/04/23 20:44 Last Infusion: 05/05/23 00:41 Dose: Infused Documented By: Admin: 05/04/23 20:00 Dose: 100 mls/hr Documented By: Infusion: 05/04/23 19:49 Dose: Infused Documented By: Admin: 05/04/23 18:49 Dose: 100 mls/hr Documented By: AM Propofol (Diprivan) 1,000 mg in 100 mls @ 0 mls/hr IV .Q0M [facility]; Protocol Stop: 05/07/23 19:14 Last Titration: 05/05/23 17:46 Dose: Infused Documented By: Titration: 05/05/23 09:00 Dose: 0 mcg/kg/min, 0 mls/hr Documented By: Admin: 05/05/23 08:54 Dose: Not Given Documented By: Titration: 05/05/23 08:45 Dose: 10 mcg/kg/min, 5.4 mls/hr Documented By: Titration: 05/05/23 08:30 Dose: 15 mcg/kg/min, 8.1 mls/hr Documented By: Titration: 05/05/23 08:15 Dose: 20 mcg/kg/min, 10.7 mls/hr Documented By: Titration: 05/05/23 08:00 Dose: 25 mcg/kg/min, 13.4 mls/hr Documented By: Titration: 05/05/23 07:45 Dose: 30 mcg/kg/min, 16.1 mls/hr Documented By: Titration: 05/05/23 07:20 Dose: 35 mcg/kg/min, 18.8 mls/hr Documented By: Titration: 05/05/23 07:11 Dose: 40 mcg/kg/min, 21.5 mls/hr Documented By: SARTHAK Co-signed By: EULOGIO Admin: 05/05/23 05:35 Dose: 40 mcg/kg/min, 21.5 mls/hr Documented By: LUIS Co-signed By: SARTHAK Titration: 05/05/23 05:16 Dose: Infused Documented By: LUIS Co-signed By: SARTHAK Admin: 05/05/23 00:36 Dose: 40 mcg/kg/min, 21.5 mls/hr Documented By: SARTHAK Co-signed By: LUIS Titration: 05/05/23 00:36 Dose: Infused Documented By: SARTHAK Co-signed By: LUIS Admin: 05/04/23 19:25 Dose: 30 mcg/kg/min, 16.1 mls/hr Documented By: TIFFANI Co-signed By: PAH Thiamine HCl 500 mg/ Sodium (Chloride) 55 mls @ 210 mls/hr IV NOW STA Stop: 05/04/23 19:28 Last Infusion: 05/04/23 21:49 Dose: Infused Documented By: TLWin Admin: 05/04/23 21:31 Dose: 210 mls/hr Documented By: SARTHAK Pantoprazole Sodium 40 mg/ (Syringe) 10 mls @ 5 mls/min IV DAILY@1100 [facility] Stop: 06/04/23 10:59 Last Admin: 05/05/23 09:11 Dose: 5 mls/min Documented By: EULOGIO Phytonadione 10 mg/ Dextrose 51 mls @ 102 mls/hr IV ONE ONE Stop: 05/04/23 21:59 Last Infusion: 05/05/23 00:40 Dose: Infused Documented By: Admin: 05/04/23 21:45 Dose: 102 mls/hr Documented By: SARTHAK Vasopressin 20 units/ Sodium (Chloride) 101 mls @ 12.12 mls/hr IV .Q8H20M [facility] Stop: 06/03/23 21:29 Last Infusion: 05/05/23 17:42 Dose: Infused Documented By: Admin: 05/05/23 13:26 Dose: 0.04 unit/min, 12.1 mls/hr Documented By: ZOILA Co-signed By: EULOGIO Infusion: 05/05/23 13:26 Dose: Infused Documented By: ZOILA Co-signed By: EULOGIO Infusion: 05/05/23 07:11 Dose: 0.04 unit/min, 12.1 mls/hr Documented By: SARTHAK Co-signed By: EULOGIO Admin: 05/05/23 05:34 Dose: 0.04 unit/min, 12.1 mls/hr Documented By: LUIS Co-signed By: SARTHAK Infusion: 05/05/23 05:34 Dose: Infused Documented By: LUIS Co-signed By: SARTHAK Admin: 05/04/23 21:35 Dose: 0.04 unit/min, 12.1 mls/hr Documented By: SARTHAK Co-signed By: LUIS Lactated Ringer's (Lr) 1,000 mls @ 125 mls/hr IV .Q8H [facility] Stop: 06/03/23 21:29 Last Admin: 05/05/23 13:31 Dose: 125 mls/hr Documented By: Infusion: 05/05/23 13:31 Dose: Infused Documented By: Admin: 05/05/23 05:34 Dose: 125 mls/hr Documented By: Infusion: 05/05/23 05:34 Dose: Infused Documented By: Admin: 05/04/23 21:34 Dose: 125 mls/hr Documented By: TLM Potassium Chloride (K Jay / Wtr) 20 meq in 100 mls @ 100 mls/hr IV Q1H [facility] Stop: 05/05/23 01:29 Last Infusion: 05/05/23 03:17 Dose: Infused Documented By: Admin: 05/05/23 00:39 Dose: 100 mls/hr Documented By: Infusion: 05/05/23 00:35 Dose: Infused Documented By: Admin: 05/04/23 23:35 Dose: 100 mls/hr Documented By: Infusion: 05/04/23 23:35 Dose: Infused Documented By: Admin: 05/04/23 22:51 Dose: 100 mls/hr Documented By: Infusion: 05/04/23 22:42 Dose: Infused Documented By: Admin: 05/04/23 21:42 Dose: 100 mls/hr Documented By: TLM Lactated Ringer's (Lr) 500 mls @ 999 mls/hr IV .Q31M ONE Stop: 05/04/23 22:10 Last Infusion: 05/05/23 00:40 Dose: Infused Documented By: Admin: 05/04/23 22:08 Dose: 999 mls/hr Documented By: TLM Levetiracetam 2,000 mg/ Sodium (Chloride) 270 mls @ 999 mls/hr IV NOW STA Stop: 05/04/23 22:10 Last Infusion: 05/05/23 00:40 Dose: Infused Documented By: Admin: 05/04/23 23:08 Dose: 999 mls/hr Documented By: TLM Levetiracetam 1,000 mg/ Sodium (Chloride) 110 mls @ 420 mls/hr IV Q12H [facility] Stop: 06/04/23 09:59 Last Infusion: 05/05/23 09:39 Dose: Infused Documented By: Admin: 05/05/23 09:11 Dose: 420 mls/hr Documented By: HLK Norepinephrine Bitartrate (Levophed/D5w) 4 mg in 250 mls @ 201.375 mls/hr IV .Q1H15M [facility]; Protocol Stop: 06/03/23 21:59 Last Admin: 05/05/23 05:38 Dose: Not Given Documented By: Titration: 05/05/23 05:37 Dose: Infused Documented By: Titration: 05/05/23 03:57 Dose: 0.6 mcg/kg/min, 201.4 mls/hr Documented By: Admin: 05/05/23 03:04 Dose: 0.5 mcg/kg/min, 167.8 mls/hr Documented By: TLM Co-signed By: CP Titration: 05/05/23 03:04 Dose: Infused Documented By: TLM Co-signed By: CP Titration: 05/05/23 02:40 Dose: 0.35 mcg/kg/min, 117.5 mls/hr Documented By: Titration: 05/05/23 01:29 Dose: 0.3 mcg/kg/min, 100.7 mls/hr Documented By: Titration: 05/05/23 01:21 Dose: 0.2 mcg/kg/min, 67.1 mls/hr Documented By: Admin: 05/05/23 00:38 Dose: 0.17 mcg/kg/min, 57.1 mls/hr Documented By: TLM Co-signed By: LUIS Thiamine HCl 500 mg/ Sodium (Chloride) 55 mls @ 210 mls/hr IV Q8H [facility] Stop: 06/04/23 03:59 Last Infusion: 05/05/23 14:01 Dose: Infused Documented By: Admin: 05/05/23 13:27 Dose: 210 mls/hr Documented By: Infusion: 05/05/23 04:00 Dose: Infused Documented By: Admin: 05/05/23 03:44 Dose: 210 mls/hr Documented By: TLM Ceftriaxone Sodium 2,000 mg/ (Dextrose) 50 mls @ 100 mls/hr IV Q24H [facility]; Protocol Stop: 05/06/23 23:59 Last Infusion: 05/05/23 01:12 Dose: Infused Documented By: Admin: 05/05/23 00:32 Dose: 100 mls/hr Documented By: TLM Insulin Human Regular 250 (units/ Sodium Chloride) 250 mls @ 2.4 mls/hr IV .Q24H [facility]; Protocol Stop: 06/04/23 00:14 Last Titration: 05/05/23 14:46 Dose: Infused Documented By: HLK Co-signed By: JLM Titration: 05/05/23 09:55 Dose: 2.4 units/hr, 2.4 mls/hr Documented By: HLK Co-signed By: JLM Titration: 05/05/23 08:30 Dose: 3 units/hr, 3 mls/hr Documented By: HLK Co-signed By: CRW Titration: 05/05/23 07:30 Dose: 3.8 units/hr, 3.8 mls/hr Documented By: HLK Co-signed By: CRW Titration: 05/05/23 07:11 Dose: 4.7 units/hr, 4.7 mls/hr Documented By: TLM Co-signed By: HLK Titration: 05/05/23 06:37 Dose: 4.7 units/hr, 4.7 mls/hr Documented By: TLM Co-signed By: CP Titration: 05/05/23 05:30 Dose: 5.9 units/hr, 5.9 mls/hr Documented By: TLM Co-signed By: CP Titration: 05/05/23 04:30 Dose: 5.9 units/hr, 5.9 mls/hr Documented By: TLM Co-signed By: CP Titration: 05/05/23 03:30 Dose: 5.9 units/hr, 5.9 mls/hr Documented By: CP Co-signed By: TMG Titration: 05/05/23 02:30 Dose: 4.9 units/hr, 4.9 mls/hr Documented By: CP Co-signed By: TMG Titration: 05/05/23 01:08 Dose: 4.1 units/hr, 4.1 mls/hr Documented By: TLM Co-signed By: CP Admin: 05/05/23 00:33 Dose: 3.4 units/hr, 3.4 mls/hr Documented By: TLM Co-signed By: CP Albumin Human (Albumin 5%) 250 mls @ 500 mls/hr IV ONE ONE Stop: 05/05/23 03:22 Last Infusion: 05/05/23 03:30 Dose: Infused Documented By: Admin: 05/05/23 03:02 Dose: 500 mls/hr Documented By: TLM Calcium Chloride 1,000 mg/ (Dextrose) 60 mls @ 240 mls/hr IV NOW STA Stop: 05/05/23 03:18 Last Infusion: 05/05/23 03:30 Dose: Infused Documented By: Admin: 05/05/23 03:11 Dose: 240 mls/hr Documented By: TLM Norepinephrine Bitartrate (Levophed/D5w) 32 mg in 250 mls @ 20.977 mls/hr IV .[id number] [facility]; Protocol Stop: 06/04/23 04:14 Last Titration: 05/05/23 17:42 Dose: Infused Documented By: Admin: 05/05/23 15:39 Dose: Not Given Documented By: Titration: 05/05/23 14:54 Dose: 0.5 mcg/kg/min, 21 mls/hr Documented By: Titration: 05/05/23 13:30 Dose: 0.48 mcg/kg/min, 20.1 mls/hr Documented By: Titration: 05/05/23 13:00 Dose: 0.42 mcg/kg/min, 17.6 mls/hr Documented By: Titration: 05/05/23 12:34 Dose: 0.4 mcg/kg/min, 16.8 mls/hr Documented By: Titration: 05/05/23 11:31 Dose: 0.38 mcg/kg/min, 15.9 mls/hr Documented By: Titration: 05/05/23 11:12 Dose: 0.4 mcg/kg/min, 16.8 mls/hr Documented By: Titration: 05/05/23 10:06 Dose: 0.42 mcg/kg/min, 17.6 mls/hr Documented By: Titration: 05/05/23 07:45 Dose: 0.44 mcg/kg/min, 18.5 mls/hr Documented By: Titration: 05/05/23 07:30 Dose: 0.42 mcg/kg/min, 17.6 mls/hr Documented By: Titration: 05/05/23 07:11 Dose: 0.4 mcg/kg/min, 16.8 mls/hr Documented By: TLM Co-signed By: EULOGIO Titration: 05/05/23 06:51 Dose: 0.35 mcg/kg/min, 14.7 mls/hr Documented By: Admin: 05/05/23 04:45 Dose: 0.6 mcg/kg/min, 25.2 mls/hr Documented By: SARTHAK Co-signed By: LUIS Magnesium Sulfate/Dextrose (Magnesium Sulfate / D5w) 1 gm in 100 mls @ 50 mls/hr IV Q2H [facility] Stop: 05/05/23 11:59 Last Infusion: 05/05/23 14:04 Dose: Infused Documented By: Admin: 05/05/23 11:03 Dose: 50 mls/hr Documented By: Infusion: 05/05/23 11:03 Dose: Infused Documented By: Admin: 05/05/23 09:11 Dose: 50 mls/hr Documented By: EULOGIO Potassium Chloride (K Jay / Wtr) 20 meq in 100 mls @ 50 mls/hr IV Q2H [facility] Stop: 05/05/23 14:14 Last Infusion: 05/05/23 15:57 Dose: Infused Documented By: Admin: 05/05/23 13:27 Dose: 50 mls/hr Documented By: Infusion: 05/05/23 13:03 Dose: Infused Documented By: Admin: 05/05/23 11:03 Dose: 50 mls/hr Documented By: EULOGIO Calcium Gluconate 1,000 mg/ (Sodium Chloride) 60 mls @ 240 mls/hr IV Q15M [facility] Stop: 05/05/23 10:59 Last Infusion: 05/05/23 13:01 Dose: Infused Documented By: Admin: 05/05/23 11:31 Dose: 240 mls/hr Documented By: Infusion: 05/05/23 11:18 Dose: Infused Documented By: Admin: 05/05/23 11:03 Dose: 240 mls/hr Documented By: EULOGIO Epinephrine HCl () 4 mg in 254 mls @ 6.782 mls/hr IV .Q24H [facility]; Protocol Stop: 06/04/23 17:29 Last Admin: 05/05/23 17:41 Dose: Not Given Documented By: EULOGIO Fentanyl Citrate (Fentanyl Citrate) 2,500 mcg in 250 mls @ 2.5 mls/hr IV .Q96H [facility]; Protocol Stop: 05/19/23 17:29 Last Titration: 05/05/23 17:50 Dose: Infused Documented By: EULOGIO Co-signed By: ZOILA Admin: 05/05/23 17:41 Dose: 25 mcg/hr, 2.5 mls/hr Documented By: EULOGIO Co-signed By: MIRANDA Insulin Aspart (Insulin Aspart Per Unit Charge) 0 units SC ACHS [facility] Stop: 06/04/23 07:29 Last Admin: 05/05/23 11:05 Dose: Not Given Documented By: Admin: 05/05/23 08:54 Dose: Not Given Documented By: EULOGIO Insulin Human Regular (Novolin-R Insulin Per Unit Charge) 10 units IV NOW STA Stop: 05/04/23 17:30 Last Admin: 05/04/23 17:34 Dose: 10 units Documented By: JACKELINE Co-signed By: HIPOLITO Insulin Human Regular (Novolin-R Bolus From Bag) 3.5 units IV ONE ONE Stop: 05/05/23 00:16 Last Admin: 05/05/23 00:34 Dose: 3.5 units Documented By: SARTHAK Co-signed By: LUIS Ioversol (Optiray 320 125ml) 118 ml IV ONCE ONE Stop: 05/04/23 19:53 Last Admin: 05/04/23 19:52 Dose: 118 ml Documented By: SHAHEEN Ioversol (Optiray 320 500ml) 100 ml IV ONCE ONE Stop: 05/05/23 01:59 Last Admin: 05/05/23 01:59 Dose: 84 ml Documented By: ROBSON Ioversol (Optiray 320 125ml) 125 ml IV ONCE ONE Stop: 05/05/23 06:21 Last Admin: 05/05/23 06:20 Dose: 117 ml Documented By: ROBSON Midazolam HCl (Midazolam Hcl 5 Mg/Ml 2ml Vial) 3 mg IV NOW STA Stop: 05/04/23 19:27 Last Admin: 05/04/23 20:19 Dose: 3 mg Documented By: LUIS Leija (Stat Iv Infusion Titration Per Protocol) 1 each N/A NOW STA Stop: 05/04/23 17:22 Last Admin: 05/04/23 18:17 Dose: Not Given Documented By: JACKELINE Leija (Stat Iv Infusion Titration Per Protocol) 1 each N/A NOW STA Stop: 05/04/23 17:26 Last Admin: 05/04/23 18:32 Dose: Not Given Documented By: JACKELINE Leija (Icu Protocol For Hyperglycemia) 1 each N/A ACHS [facility] Stop: 05/06/23 20:59 Last Admin: 05/05/23 00:46 Dose: Not Given Documented By: LUIS Leija ([facility] Electrolyte Replacement Protocol) 1 each N/A BID@06,18 [facility]; Protocol Stop: 05/12/23 05:59 Last Admin: 05/05/23 16:20 Dose: 1 each Documented By: Admin: 05/05/23 05:47 Dose: Not Given Documented By: LUIS Norepinephrine Bitartrate (Norepinephrine/D5w 4 Mg/250 Ml) Confirm Administered Dose 4 mg IV .STK-MED ONE Stop: 05/04/23 20:37 Last Admin: 05/04/23 21:33 Dose: 4 mg Documented By: TLWin Propofol (Propofol Iv Emulsion 10 Mg/Ml 100 Ml Vial) Confirm Administered Dose 1,000 mg IV .STK-MED ONE Stop: 05/04/23 19:04 Last Admin: 05/04/23 19:25 Dose: Not Given Documented By: VIRGINIAW Sodium Bicarbonate (Sodium Bicarb 8.4% Inj 50 Meq/50 Ml Syr) 50 meq IV NOW STA Stop: 05/04/23 17:30 Last Admin: 05/04/23 17:30 Dose: 50 meq Documented By: AM Sodium Bicarbonate (Sodium Bicarb 8.4% Inj 50 Meq/50 Ml Syr) 50 meq IV NOW STA Stop: 05/05/23 03:05 Last Admin: 05/05/23 03:10 Dose: 50 meq Documented By: TLM Sodium Bicarbonate (Sodium Bicarb 8.4% Inj 50 Meq/50 Ml Syr) Confirm Administered Dose 50 meq IV .STK-MED ONE Stop: 05/05/23 03:06 Last Admin: 05/05/23 03:25 Dose: Not Given Documented By: LUIS Sodium Zirconium Cyclosilicate (Sodium Zirconium Cyclosilicate 10 Gm Packet) 10 gm GT NOW STA Stop: 05/04/23 17:48 Last Admin: 05/04/23 17:55 Dose: 10 gm Documented By: AM Imaging Data Radiologist's Impression: Chest X-Ray 05/04/23 17:24 SINGLE VIEW CHEST CLINICAL HISTORY: Atypical chest pain. Cardiac arrest. Respiratory failure. FINDINGS: An AP, portable, supine chest radiograph is obtained. No prior studies are available for comparison at the time of dictation. An endotracheal tube has been placed. The tip projects approximately 5 cm above the annmarie. An enteric tube has been placed. The tip extends below the diaphragm over the stomach. The cardiac silhouette appears mildly enlarged. There is pulmonary vascular congestion. There are mild bilateral airspace opacities. No large pleural effusion or pneumothorax is seen. The skeletal structures are osteopenic. The bony thorax is grossly intact. IMPRESSION: 1. Endotracheal and enteric tubes have been placed as above. 2. Cardiomegaly with pulmonary vascular congestion. 3. Bilateral airspace opacities likely represent mild pulmonary edema. Correlate clinically for evidence of a superimposed infectious/inflammatory pneumonitis. Radiographic follow-up to resolution is recommended ACT 112: Negative or not required by law. Electronically signed by: Raymon Wilson M.D. 05/04/2023 5:58 PM Chest CTA 05/04/23 18:15 Exam(s): CTA CHEST IV Amt: 118 ml optiray 320 EXAM: CT Angiography Chest With Intravenous Contrast CLINICAL HISTORY: Reason for exam: PE. TECHNIQUE: Axial computed tomographic angiography images of the chest with intravenous contrast. CTDI is 40.61 mGy and DLP is 20.3 mGy-cm. Automated exposure control was utilized for the study. A dose lowering technique was utilized adhering to the principles of ALARA. MIP reconstructed images were created and reviewed. COMPARISON: None. FINDINGS: Pulmonary arteries: No pulmonary embolism. Aorta: No dissection or aneurysm in the ascending aorta. Lungs: ET tube in place. Reticulonodular infiltrate associated with pleural-based nodule as well as consolidation or nodular densities right middle lobe, largest nodule 1.5 cm. Mild interstitial thickening in the perihilar region particularly left lower lobe. Mild bibasilar atelectasis or infiltrate. Pleural space: Mild hemothorax right anterior chest wall. No pneumothorax. Heart: No cardiomegaly. No significant pericardial effusion. No evidence of elevated right heart pressures. Bones/joints: Fracture of the bilateral anterior 5 through 8 ribs and mild adjacent hemothorax, pattern suggestive of sequelae of chest compression, correlate clinically. No other fracture. Soft tissues: Severe low density of the liver, probable fatty infiltration. Fluid surrounding the spleen, not fully evaluated, may reflect ascites, hemoperitoneum not excluded. NG tube. Lymph nodes: No enlarged lymph nodes. IMPRESSION: 1. No pulmonary embolism. 2. Fractures of the anterior ribs bilaterally with mild localized right anterior chest wall hemothorax. 3. No pneumothorax. 4. Probable cirrhosis with ascites, though the upper abdomen is not fully evaluated, and hemoperitoneum is not excluded. Electronically signed by: Nicolle Jefferson M.D. 05/04/23 20:[address] 05/04/23 18:15 Exam(s): CT HEAD Without Contrast EXAM: CT Head Without Intravenous Contrast CLINICAL HISTORY: Reason for exam: cardiac arrest. TECHNIQUE: Axial computed tomography images of the head/brain without intravenous contrast. CTDI is 35.08 mGy and DLP is 546.36 mGy-cm. Automated exposure control was utilized for the study. A dose lowering technique was utilized adhering to the principles of ALARA. COMPARISON: None. FINDINGS: Brain: Symmetrical hypodensities bilateral caudate head and anterior basal ganglia. Petechial high density associated with these areas, indicating minimally hemorrhagic infarct. Symmetrical bilateral pattern of basal ganglia involvement suggests anoxic brain injury, and is in keeping with history. Loss of aranda-white differentiation is also suggested. No mass-effect or herniation. Ventricles: No hydrocephalus or midline shift. Bones/joints: No skull fracture. Soft tissues: No scalp hematoma. Sinuses: Clear. Mastoid air cells: No mastoid effusion. IMPRESSION: 1. Multiple findings including mildly hemorrhagic, symmetrical bilateral basal ganglia infarcts, and loss of aranda-white differentiation, suggests global anoxia. 2. No hydrocephalus or herniation. Electronically signed by: Nicolle Jefferson M.D. 05/04/23 20:36 PM Discharge Plan Visit Data Chief Complaint: Cardiac Arrest/CPR ED Provider: Lizzie Vail Discharge Problem: Cardiac arrest, Anoxic brain injury Patient Disposition: Admitted As Inpatient Discharge Instructions Interventions: ED Discharge Assessment Last Done: 05/04/23 20:35
[2023-05-04 18:56] LABS: Albumin Globulin Ratio 1.2 (0.9-2); Albumin Level 2.9 gm/dl (3.4-5.0); BUN Creatinine Ratio 12.2 (10-20); Bilirubin,Total 1.1 mg/dl (0.2-1.0); Calcium 9.8 mg/dl (8.6-10.3); Creatinine Clr Calc Pharmacy 81.1 ml/min; Est GFR (African American) 87.6 ml/min; Est GFR (Non-African American) 75.6 ml/min; Globulin 2.5 gm/dl (2.5-4.0); Magnesium 2.9 mg/dl (1.7-2.4); Phosphorus 9.3 mg/dl (2.5-4.9); Total Protein 5.4 gm/dl (6.0-8.3); Troponin I High Sensitivity 965.4 pg/ml (0-14)
[2023-05-04] MEDS ORDERED: PROPOFOL IV EMULSION 10 MG/ML 100 ML VIAL IV ONE (19:03)
[2023-05-04] MEDS ORDERED: PROPOFOL BOLUS FROM BAG IV PRN (19:12)
[2023-05-04] MEDS ORDERED: THIAMINE HCL 500 MG in SODIUM CHLORIDE 0.9% 50 ML IV STA (19:13)
[2023-05-04 19:23] LABS: Basophils # (auto) 0.03 K/uL (0.00-0.20); Basophils % (auto) 0.3 %; Eosinophils # (auto) 0.03 K/uL (0.00-0.50); Eosinophils % (auto) 0.3 %; Hematocrit (blood only) 32.9 % (37.0-47.0); Hemoglobin 10.7 g/dl (12.0-16.0); Immature Granulocytes # (auto) 0.41 K/uL (0.01-0.20); Lymphocytes # (auto) 2.08 K/uL (1.20-3.40); Lymphocytes % (auto) 20.3 %; Mean Corpuscular Hemoglobin 34.4 pg (25.0-34.0); Mean Corpuscular Hgb Conc 32.5 g/dL (32.0-36.0); Mean Corpuscular Volume 105.8 fL (80.0-100.0); Mean Platelet Volume 11.5 fL (9.4-12.4); Monocytes # (auto) 0.15 K/uL (0.11-0.59); Monocytes % (auto) 1.5 %; Neutrophils # (auto) 7.57 K/uL (1.40-6.50); Neutrophils % (auto) 73.6 %; Nucleated RBC # (auto) 0.02 K/uL (0.00-0.12); Nucleated RBC % (auto) 0.2 %; Platelet Count 57 K/uL (130-400); RDW Coefficient of Variation 11.9 % (11.5-14.5); RDW Standard Deviation 46.3 fL (36.4-46.3); Red Blood Count 3.11 M/uL (4.20-5.40); White Blood Count 10.27 K/ul (4.8-10.8)
[2023-05-04] MEDS: propofoL 1,000 MG/100 ML VIAL IV SCH (19:25)
[2023-05-04] MEDS ORDERED: MIDAZOLAM HCL 5 MG/ML 2ML VIAL IV STA (19:26)
[2023-05-04] MEDS ORDERED: OPTIRAY 320 125ml IV ONE (19:52)
[2023-05-04 20:01] LABS: Fibrinogen 112 mg/dl (184-400)
[2023-05-04] MEDS ORDERED: ACETAMINOPHEN 1000 MG/100 ML IV IV PRN (20:10)
[2023-05-04] MEDS ORDERED: LEVALBUTEROL 1.25 MG/3 ML NEB INH PRN (20:10)
--- NOTE | 2023-05-04 20:10 | Critical Care Consultation ---
Date of Consultation May 04, 2023 Assessment & Plan (1) Seizure-like activity: (2) ETOH abuse: (3) Anoxic brain injury: (4) Hemorrhagic stroke: (5) Hypokalemia: (6) Alcohol use disorder: (7) Cardiac arrest: (8) Thrombocytopenia: (9) Abnormal LFTs: (10) Metabolic acidosis: Plan ICU CONSULT NOTE FORMAT: Reason Critically Ill: 62 YOF with out of hospital cardiac arrest which appears to be secondary to seizure activity following self withdraw from ETHO. She is currently with concern for hemorrhagic CVA of basal ganglia and concern for anoxic brain injury, requiring vasopressor support. Neuro - Seizure activity in setting of ETOH withdrawl, Concern for anoxic/hemorrhagic brain injury CAM ICU: [facility] - Patient presents as cardiac arrest from home with reported seizure activity as the pre-cursor with limb stiffening and sonorous respirations. - Difficult to ascertain which precluded which from a neurological standpoint at this time - CT of head performed non-con with concern for anoxic injury- if this is present this early, this would be a very poor prognostication for meaningful neurological recovery - Currently with GCS 3T with pinpoint pupils - Will obtain EEG in morning, continue with propofol for sedation and seizure prophy - Will give Keppra 2 G IV now and then 1GM IV q12 and Continue with propofol for seizure prophy and sedation - MRI in morning following EEG to assist with neurological evaluation and p rognostication - Optimize PH, PaO2, PaCO2, Glucose - Maintain NORMOTHERMIA in setting of hypokalemia as well as with possible basal ganglial hemorrhage- - in setting of possible hemorrhage while awaiting phone call return- will give 1 platelet and 2 FFP, Vitamin K 10mg IVx1 - basal ganglial Hemorrhagic CVA not favored by independent read at [facility] via Dr. Jovan Wagoner- Neurology - Tox screen pending - Thiamine 500mg IV q8 hours Cardiac - Shock, Cardiac Arrest, Elevated HsCTNI - Shock unspecified at this time- possibilities are septic, hypovolemic, cardiogenic - Wean off Epinephrine and transition to LEVOphed and Vasopressin support if able - Continue with electrolyte replacement for severe hypokalemia - Follow HsCTNI and ECG's- Appreciate Cardiology consultation - ECHO in morning - As above, correct acid base and electrolyte disturbances Respiratory - Respiratory failure requiring intubation and mechanical ventilation - In the setting of presumed seizure like activity - Follow right hemothroax GI - Cirrhosis, CHCF, liver injury, - Patient without recent baseline LFTS- however she is currently with elevated LFTs, alteration on mentation, and INR of 1.4 - Will continue with vasopressor support - Check LFTs in morning as well as INR- likely acute on chronic and ischemic can't be ruled out - 2 FFP, Vitamin K 10mg IVx1 RENAL/LYTES - AGAP Metabolic Acidosis, Lactic Acidosis, HYPOkalemia - HCo3 stopped secondary to HYPOkalemia - Continue with LR and vasopressor support - Thiamine 500mg IV now - Lactate continues to increase- however this makes difficult in setting of liver injury, epinephrine infusion, and overall shock state - Daughter states she has been with her all day and week and she has not ingested anything other than water and an "old beer" today- if continues to increase consider fomepazole - ABG improving with respiratory compensation - Lamb to gravity - Continue while intubated ENDO - Hyperglycemia without diagnosis of diabetes - ICU hyperglycemia protocol HEME - Thrombocytopenia, anemia - Likely secondary to ETOH misuse - However with concern for intracranial bleed will provide 1 six pack platelets - Elevated INR secondary to CHCF- 2 units FFP - Anemia of uncertain chronicity- she is with blood from nose at this time and in back of mouth - transfuse for HGB <7.0, acute blood loss, - Follow HGB and abdominal exam- will obtain CT abdomen/pelvis once stabilized for eval any bleeding/infarction with elevated lactate levels and post CPR ID - Can't exclude septic etiology at this time however other causes more likely - blood cultures x2 LINES/IV ACCESS - CVL, Arterial line, OGT, ETT, Lamb catheter Continue use of these lines DVT PROPHYLAXIS - SCDS, Hold on chemoprophylaxis until intracranial bleed ruled out DISPO: Critically guarded- ICU while intubated and sedated and neurological prognostication completed Family: Family has been updated on likelihood of anoxic brain injury and relative prognostication findings at this time. I have discussed possible hemorrhage with neurology and less favorable. They understand that there is likely a poor outcome, however would like to continue down the prognostication pathway and obtain more information and wake up in the morning before coming to decision regarding goals of care. Currently remains FULL CODE I have personally spent 90 minutes of critical care time in the direct management of this patient. This is a life/limb threatening event. This includes time spent evaluating patient, direct bedside care, chart review, placing orders, interpretation of diagnostic studies, discussion with consultants, patient, and family members, as well as other required patient management activities. This time is exclusive of all separately billable procedures, and separate from and in addition to any other critical care service time. Thank you for allowing us to participate in the care of this patient. Please refer to my attending physician's documentation for any further recommendations. History of Present Illness Reason for Consultation: post cardiac arrest Requesting Physician: Kd Smith MD Attending Physician: Kd Smith MD History of Present Illness 62 YOF with history of ETOH misuse/abuse with no medical records available for review. Patient presented to the EMD via EMS following presumed seizure act ivity at home and cardiac arrest with shock x1 reported and return of ROSC. She arrived to the EMD intubated with CXR with ETT in adequate positioning. Daughter and her are at the bedside, the daughter presents most of the story, as she was with her through the whole event. She reports that she has tried to stop drinking but reports her having a beer about 3 hours prior to her event. She reports that she has quit drinking in the past multiple times, and has seized with prior attempts at stopping. Prior to the event the daughter was walking with her as she was feeling week, she reports that her mother stared off into the distance and she could tell something was wrong. The patient then collapsed to the floor with irregular sonorous respirations and mouth fluttering. She reports that she was all tensed up in the upper and lower extremities and then started shaking. She turned her on her side and tried to keep her airway open and breathing. She then called 911 and started CPR. Upon arrival with EMS and police, she reports that they took over with oxygen deliver and cpr. Daughter reports that the defibrillator was no shock advised at least twice and then with a shock advised around the 3rd time, all while CPR was ongoing. Reportedly there was concern for a [place] like picture on the way to the EMD, however records are difficult to track down at this time. She was on epinephrine infusion, noted with severe metabolic acidosis, reportedly hyperkalemia on POC testing to 7.0. She was started on isotonic bicarb infusion following 2 amp boluses, as well as given Lokelma in the EMD, she was also started on cooling blanket in the EMD. Upon my evaluation in the EMD patient was with peripheral access and IO on Epinephrine infusion, no sedation, and with potassium and Isotonic HCO3 infusion. Patient appeared to have some gagging against the tube, but without no other facial grimacing or localization/withdraw to pain. Awaiting head CT scan. Interventional Cardiology was asked to be notified for evaluation secondary to out of hospital arrest for which sounds like ventricular arrhythmia- evaluated ECG and case discussed between him and EMD physician currently feels as electrolyte and seizure disorder was precursor vs. ischemic in nature. Will attempt to correct the above with re-evaluation and ECHO cardiogram in morning. Thiamine and Versed were ordered. Upon arrival to the ICU patient was tachycardic into the 130s with epinephrine infusion and MAP 102, repeat BMP, PH, Lactate, and type and cross completed. She was with blood coming from her nose. Pupils pinpoint and remains with not withdraw or localization with painful stimuli, she is on propofol at 25 mcg/kg/min. She is with poor access so after speaking to family in the EMD and verbal consent for central access and arterial access will be obtained once patient returns from CT scan. Overall patient with severe acidosis concern for anoxic brain injury and severe electrolyte derangements. Following arrival to ICU and results of CT scans with hemorrhagic basal ganglial stroke and concern for anoxic brain injury. Discussed these findings with family and they understand that likely has poor prognosis for good neurological recovery. Opted to reach out for neurological/neurosurgical evaluation with concern of hemorrhagic cva, however they understand there may not be full therapeutic option and transfer may occur. Discussed case with Alejandra Wagoner, given history and background with concern for hemorrhage component. He personally viewed the images and compared with previous. Currently does not feel that there is a hemorrhagic component but does concur of anoxic like injury pattern. No current recommendations for changing POC. CODE: FULL Allergies Allergy/AdvReac Type Severity Reaction Status Date / Time nafcillin Allergy Intermediate RASH-PER Verified 05/04/23 17:30 GMG RECORD Benzodiazepines AdvReac Intermediate AMNESIA-ATIVAN Verified 05/04/23 17:30 PER GMG RECORD Home Medications Medication Instructions Recorded Confirmed Type Unobtainable 05/04/23 05/04/23 History Patient History Medical History ETOH abuse Social History Smoking Status: Unknown if ever smoked Preferred Language: [place] Communication Ability: intubated Computer Animator Required: No Beliefs That Will Affect Care: None Current Living Situation: Spouse Other Information That Helps Us Care for You: Yes (etoh abuse) Review of Systems Review of Systems: unable to obtain secondary to mental status Physical Exam Physical Exam: PHYSICAL EXAM: Neuro: AAO x 0, no spontaneous movement noted while without sedation, pupils pinpoint, Babinski unable to arouse, + gag, GCS 3T Chest: equal rise and fall of the chest, no accessory muscle use, no heaves or thrills, Clear to auscultation, on room air, Cardiac: Regular rate and rhythm, telemetry reviewed- sinus tachycardia, skin cool, cap refill >3 seconds, peripheral pulses +2 no JVD, no murmur, GI: NABS x 4 quadrants, soft, nontender to palpation, no rebound, guarding or tenderness : Lamb to gravity, no CVA tenderness, draining fabiola urine Skin: no rash or erythema Results & Data Results & Data Vital Signs (Past 12 Hours) Vital Signs Temp Pulse Pulse Resp BP BP Pulse Ox 05/04/23 19:10 35.2 C L 102 H 22 100 05/04/23 19:10 114/80 05/04/23 19:05 115/83 05/04/23 19:05 35.1 C L 105 H 29 H 100 05/04/23 19:00 35.1 C L 106 H 12 100 05/04/23 19:00 126/86 05/04/23 18:55 35.1 C L 107 H 24 100 05/04/23 18:55 126/87 05/04/23 18:50 35.1 C L 109 H 18 100 05/04/23 18:50 128/89 05/04/23 18:45 35.1 C L 110 H 20 100 05/04/23 18:45 127/89 05/04/23 18:40 35.1 C L 113 H 20 100 05/04/23 18:40 139/93 05/04/23 18:35 35.2 C L 114 H 22 100 05/04/23 18:35 139/93 05/04/23 18:30 35.2 C L 117 H 20 100 05/04/23 18:30 148/99 H 05/04/23 18:25 35.3 C L 120 H 29 H 100 05/04/23 18:25 159/107 H 05/04/23 18:25 100 05/04/23 18:21 100 05/04/23 18:20 155/105 H 05/04/23 18:20 35.4 C L 121 H 30 H 100 05/04/23 18:15 35.6 C L 125 H 26 H 100 05/04/23 18:15 147/118 H 05/04/23 18:11 05/04/23 18:10 35.8 C L 129 H 26 H 100 05/04/23 18:10 164/114 H 05/04/23 18:05 36.1 C L 130 H 26 H 93 05/04/23 18:05 149/105 H 05/04/23 18:02 126 H 05/04/23 18:01 28 H 05/04/23 18:00 36.4 C L 126 H 28 H 100 05/04/23 18:00 135/92 05/04/23 17:55 103/68 05/04/23 17:55 36.6 C 126 H 28 H 100 05/04/23 17:53 36.6 C 124 H 28 H 99 05/04/23 17:53 66/38 L 05/04/23 17:50 64/38 L 05/04/23 17:50 36.6 C 119 H 28 H 100 05/04/23 17:45 122 H 23 100 05/04/23 17:45 92/59 L 05/04/23 17:40 118 H 22 99 05/04/23 17:40 124/78 05/04/23 17:40 120 H 22 134/79 98 05/04/23 17:39 134/79 05/04/23 17:39 104 H 13 98 05/04/23 17:35 142 H 7 L 05/04/23 17:30 70 22 35 L 05/04/23 17:25 122 H 22 99 05/04/23 17:23 64 05/04/23 17:22 122 H 17 80 L 05/04/23 17:20 143 H 16 05/04/23 17:19 145 H 14 O2 Del Method FiO2 05/04/23 19:10 05/04/23 19:10 05/04/23 19:05 05/04/23 19:05 05/04/23 19:00 05/04/23 19:00 05/04/23 18:55 05/04/23 18:55 05/04/23 18:50 05/04/23 18:50 05/04/23 18:45 05/04/23 18:45 05/04/23 18:40 05/04/23 18:40 05/04/23 18:35 05/04/23 18:35 05/04/23 18:30 05/04/23 18:30 05/04/23 18:25 05/04/23 18:25 05/04/23 18:25 70 05/04/23 18:21 Mechanical Vent 05/04/23 18:20 05/04/23 18:20 05/04/23 18:15 05/04/23 18:15 05/04/23 18:11 Mechanical Vent 05/04/23 18:10 05/04/23 18:10 05/04/23 18:05 05/04/23 18:05 05/04/23 18:02 05/04/23 18:01 100 05/04/23 18:00 05/04/23 18:00 05/04/23 17:55 05/04/23 17:55 05/04/23 17:53 05/04/23 17:53 05/04/23 17:50 05/04/23 17:50 05/04/23 17:45 05/04/23 17:45 05/04/23 17:40 05/04/23 17:40 05/04/23 17:40 Mechanical Vent 05/04/23 17:39 05/04/23 17:39 05/04/23 17:35 05/04/23 17:30 05/04/23 17:25 100 05/04/23 17:23 05/04/23 17:22 100 05/04/23 17:20 05/04/23 17:19 Laboratory Results Abnormal lab results 05/04/23 05/04/23 05/04/23 Range/Units 17:25 17:30 17:46 RBC (4.20-5.40) M/uL Hgb (12.0-16.0) g/dl POC Hgb 10.9 L (12.0-16.0) g/dl Hct (37.0-47.0) % POC Hct 32 L (37-47) % MCV (80.0-100.0) fL MCH (25.0-34.0) pg Plt Count (130-400) K/uL Neut # (Auto) (1.40-6.50) K/uL Immature Gran # (Auto) (0.01-0.20) K/uL PT (9.0-12.0) Seconds INR (0.9-1.1) APTT (21-31) Seconds Fibrinogen (184-400) mg/dl POC pH 7.00 L* (7.35-7.45) POC pCO2 82 H (35-46) mmHg POC pO2 202 H (80-95) mmHg POC HCO3 (19-24) glenn/L POC Base Excess -11.0 L (-9-1.8) glenn/L POC ABG O2 Sat 99.0 H (90-95) % VBG pH (7.36-7.41) POC Sodium 124 L 127 L (135-144) mmol/L Sodium (136-145) mmol/L POC Potassium 7.0 H* (3.3-5.0) mmol/L Potassium (3.5-5.1) mmol/L POC Chloride 95 L (101-112) mmol/L Chloride (98-107) mmol/L Carbon Dioxide (21-32) mmol/L POC Total CO2 20 L 23 L (24-31) mmol/L Anion Gap (3-11) Glucose (70-99(Fasting)) mg/dl POC Glucose (70-99) mg/dl POC Glucose (other) 248 H (70-99) mg/dl Lactate (0.4-2.0) mmol/L Calcium (8.6-10.3) mg/dl POC Ioniz Calcium [place] 0.81 L (1.12-1.32) mmol/l Ionized Calcium (1.12-1.32) mmol/L Phosphorus (2.5-4.9) mg/dl Magnesium (1.7-2.4) mg/dl Total Bilirubin (0.2-1.0) mg/dl AST (13-39) U/L ALT (7-52) U/L Troponin I High Sens (0-14) pg/ml Total Protein (6.0-8.3) gm/dl Albumin (3.4-5.0) gm/dl Lipase (11-82) U/L Urine Protein 2+ H (Negative) Urine Glucose (UA) Trace H (Negative) Urine Ketones 1+ H (Negative) Urine Blood 1+ H (Negative) Urine RBC (Auto) 5-10 H (0-4) /hpf U Epithel Cells (Auto) 10-20 H (0-5) /lpf Antibody Screen 05/04/23 05/04/23 05/04/23 Range/Units 17:58 17:59 18:20 RBC 3.11 L (4.20-5.40) M/uL Hgb 10.7 L (12.0-16.0) g/dl POC Hgb 11.2 L (12.0-16.0) g/dl Hct 32.9 L (37.0-47.0) % POC Hct 33 L (37-47) % MCV 105.8 H (80.0-100.0) fL MCH 34.4 H (25.0-34.0) pg Plt Count 57 L (130-400) K/uL Neut # (Auto) 7.57 H (1.40-6.50) K/uL Immature Gran # (Auto) 0.41 H (0.01-0.20) K/uL PT 15.2 H (9.0-12.0) Seconds INR 1.4 H (0.9-1.1) APTT 45 H (21-31) Seconds Fibrinogen 112 L (184-400) mg/dl POC pH 7.19 L* (7.35-7.45) POC pCO2 47 H (35-46) mmHg POC pO2 > 420 H (80-95) mmHg POC HCO3 18 L (19-24) glenn/L POC Base Excess -10.0 L (-9-1.8) glenn/L POC ABG O2 Sat 100.0 H (90-95) % VBG pH (7.36-7.41) POC Sodium 132 L (135-144) mmol/L Sodium 131 L (136-145) mmol/L POC Potassium 2.4 L* (3.3-5.0) mmol/L Potassium 3.0 L (3.5-5.1) mmol/L POC Chloride (101-112) mmol/L Chloride 94 L (98-107) mmol/L Carbon Dioxide 20 L (21-32) mmol/L POC Total CO2 20 L (24-31) mmol/L Anion Gap 17 H (3-11) Glucose 364 H* (70-99(Fasting)) mg/dl POC Glucose (70-99) mg/dl POC Glucose (other) (70-99) mg/dl Lactate (0.4-2.0) mmol/L Calcium (8.6-10.3) mg/dl POC Ioniz Calcium [place] (1.12-1.32) mmol/l Ionized Calcium (1.12-1.32) mmol/L Phosphorus 9.3 H (2.5-4.9) mg/dl Magnesium 2.9 H (1.7-2.4) mg/dl Total Bilirubin 1.1 H (0.2-1.0) mg/dl AST 361 H (13-39) U/L ALT 136 H (7-52) U/L Troponin I High Sens 965.4 H* (0-14) pg/ml Total Protein 5.4 L (6.0-8.3) gm/dl Albumin 2.9 L (3.4-5.0) gm/dl Lipase 155 H (11-82) U/L Urine Protein (Negative) Urine Glucose (UA) (Negative) Urine Ketones (Negative) Urine Blood (Negative) Urine RBC (Auto) (0-4) /hpf U Epithel Cells (Auto) (0-5) /lpf Antibody Screen POSITIVE A 05/04/23 05/04/23 Range/Units 18:41 20:18 RBC (4.20-5.40) M/uL Hgb (12.0-16.0) g/dl POC Hgb (12.0-16.0) g/dl Hct (37.0-47.0) % POC Hct (37-47) % MCV (80.0-100.0) fL MCH (25.0-34.0) pg Plt Count (130-400) K/uL Neut # (Auto) (1.40-6.50) K/uL Immature Gran # (Auto) (0.01-0.20) K/uL PT (9.0-12.0) Seconds INR (0.9-1.1) APTT (21-31) Seconds Fibrinogen (184-400) mg/dl POC pH (7.35-7.45) POC pCO2 (35-46) mmHg POC pO2 (80-95) mmHg POC HCO3 (19-24) glenn/L POC Base Excess (-9-1.8) glenn/L POC ABG O2 Sat (90-95) % VBG pH 7.21 L (7.36-7.41) POC Sodium (135-144) mmol/L Sodium 135 L (136-145) mmol/L POC Potassium (3.3-5.0) mmol/L Potassium 2.2 L* D (3.5-5.1) mmol/L POC Chloride (101-112) mmol/L Chloride (98-107) mmol/L Carbon Dioxide 16 L (21-32) mmol/L POC Total CO2 (24-31) mmol/L Anion Gap 14 H (3-11) Glucose 265 H (70-99(Fasting)) mg/dl POC Glucose 296 H (70-99) mg/dl POC Glucose (other) (70-99) mg/dl Lactate 8.5 H* (0.4-2.0) mmol/L Calcium 6.9 L D (8.6-10.3) mg/dl POC Ioniz Calcium [place] (1.12-1.32) mmol/l Ionized Calcium 1.10 L (1.12-1.32) mmol/L Phosphorus (2.5-4.9) mg/dl Magnesium (1.7-2.4) mg/dl Total Bilirubin (0.2-1.0) mg/dl AST (13-39) U/L ALT (7-52) U/L Troponin I High Sens 2854.1 H* D (0-14) pg/ml Total Protein (6.0-8.3) gm/dl Albumin (3.4-5.0) gm/dl Lipase (11-82) U/L Urine Protein (Negative) Urine Glucose (UA) (Negative) Urine Ketones (Negative) Urine Blood (Negative) Urine RBC (Auto) (0-4) /hpf U Epithel Cells (Auto) (0-5) /lpf Antibody Screen Diagnostic Findings Chest X-Ray 05/04/23 17:24 SINGLE VIEW CHEST CLINICAL HISTORY: Atypical chest pain. Cardiac arrest. Respiratory failure. FINDINGS: An AP, portable, supine chest radiograph is obtained. No prior studies are available for comparison at the time of dictation. An endotracheal tube has been placed. The tip projects approximately 5 cm above the annmarie. An enteric tube has been placed. The tip extends below the diaphragm over the stomach. The cardiac silhouette appears mildly enlarged. There is pulmonary vascular congestion. There are mild bilateral airspace opacities. No large pleural effusion or pneumothorax is seen. The skeletal structures are osteopenic. The bony thorax is grossly intact. IMPRESSION: 1. Endotracheal and enteric tubes have been placed as above. 2. Cardiomegaly with pulmonary vascular congestion. 3. Bilateral airspace opacities likely represent mild pulmonary edema. Correlate clinically for evidence of a superimposed infectious/inflammatory pneumonitis. Radiographic follow-up to resolution is recommended ACT 112: Negative or not required by law. Electronically signed by: Raymon Wilson M.D. 05/04/2023 5:58 PM Chest CTA 05/04/23 18:15 Exam(s): CTA CHEST IV Amt: 118 ml optiray 320 EXAM: CT Angiography Chest With Intravenous Contrast CLINICAL HISTORY: Reason for exam: PE. TECHNIQUE: Axial computed tomographic angiography images of the chest with intravenous contrast. CTDI is 40.61 mGy and DLP is 20.3 mGy-cm. Automated exposure control was utilized for the study. A dose lowering technique was utilized adhering to the principles of ALARA. MIP reconstructed images were created and reviewed. COMPARISON: None. FINDINGS: Pulmonary arteries: No pulmonary embolism. Aorta: No dissection or aneurysm in the ascending aorta. Lungs: ET tube in place. Reticulonodular infiltrate associated with pleural-based nodule as well as consolidation or nodular densities right middle lobe, largest nodule 1.5 cm. Mild interstitial thickening in the perihilar region particularly left lower lobe. Mild bibasilar atelectasis or infiltrate. Pleural space: Mild hemothorax right anterior chest wall. No pneumothorax. Heart: No cardiomegaly. No significant pericardial effusion. No evidence of elevated right heart pressures. Bones/joints: Fracture of the bilateral anterior 5 through 8 ribs and mild adjacent hemothorax, pattern suggestive of sequelae of chest compression, correlate clinically. No other fracture. Soft tissues: Severe low density of the liver, probable fatty infiltration. Fluid surrounding the spleen, not fully evaluated, may reflect ascites, hemoperitoneum not excluded. NG tube. Lymph nodes: No enlarged lymph nodes. IMPRESSION: 1. No pulmonary embolism. 2. Fractures of the anterior ribs bilaterally with mild localized right anterior chest wall hemothorax. 3. No pneumothorax. 4. Probable cirrhosis with ascites, though the upper abdomen is not fully evaluated, and hemoperitoneum is not excluded. Electronically signed by: Nicolle Jefferson M.D. 05/04/23 20:[address] 05/04/23 18:15 Exam(s): CT HEAD Without Contrast EXAM: CT Head Without Intravenous Contrast CLINICAL HISTORY: Reason for exam: cardiac arrest. TECHNIQUE: Axial computed tomography images of the head/brain without intravenous contrast. CTDI is 35.08 mGy and DLP is 546.36 mGy-cm. Automated exposure control was utilized for the study. A dose lowering technique was utilized adhering to the principles of ALARA. COMPARISON: None. FINDINGS: Brain: Symmetrical hypodensities bilateral caudate head and anterior basal ganglia. Petechial high density associated with these areas, indicating minimally hemorrhagic infarct. Symmetrical bilateral pattern of basal ganglia involvement suggests anoxic brain injury, and is in keeping with history. Loss of aranda-white differentiation is also suggested. No mass-effect or herniation. Ventricles: No hydrocephalus or midline shift. Bones/joints: No skull fracture. Soft tissues: No scalp hematoma. Sinuses: Clear. Mastoid air cells: No mastoid effusion. IMPRESSION: 1. Multiple findings including mildly hemorrhagic, symmetrical bilateral basal ganglia infarcts, and loss of aranda-white differentiation, suggests global anoxia. 2. No hydrocephalus or herniation. Electronically signed by: Nicolle Jefferson M.D. 05/04/23 20:36 PM Medications Administered Home Medications Unobtainable 05/04/23 [History Confirmed 05/04/23] Active Medications Acetaminophen (Acetaminophen 1000 Mg/100 Ml Iv) 1,000 mg IV Q8H PRN PRN Reason: Pain or Fever Stop: 05/07/23 20:09 Epinephrine HCl () 4 mg in 254 mls @ 34.1 mls/hr IV .Q7H27M MADHAVI; Protocol Stop: 06/03/23 17:29 Last Titration: 05/04/23 21:45 Dose: Infused Propofol (Diprivan) 1,000 mg in 100 mls @ 16.11 mls/hr IV .Q6H13M MADHAVI; Protocol Stop: 05/07/23 19:14 Last Admin: 05/04/23 19:25 Dose: 30 mcg/kg/min, 16.1 mls/hr Pantoprazole Sodium 40 mg/ (Syringe) 10 mls @ 5 mls/min IV DAILY@1100 [facility] Stop: 06/04/23 10:59 Vasopressin 20 units/ Sodium (Chloride) 101 mls @ 12.12 mls/hr IV .Q8H20M [facility] Stop: 06/03/23 21:29 Last Admin: 05/04/23 21:35 Dose: 0.04 unit/min, 12.1 mls/hr Lactated Ringer's (Lr) 1,000 mls @ 125 mls/hr IV .Q8H [facility] Stop: 06/03/23 21:29 Last Admin: 05/04/23 21:34 Dose: 125 mls/hr Potassium Chloride (K Jay / Wtr) 20 meq in 100 mls @ 100 mls/hr IV Q1H [facility] Stop: 05/05/23 01:29 Last Admin: 05/04/23 21:42 Dose: 100 mls/hr Sodium Chloride (Nss) 250 mls @ 15 mls/hr IV .[id number] PRN PRN Reason: For Transfusion Duration Stop: 05/05/23 07:47 Levetiracetam 1,000 mg/ Sodium (Chloride) 110 mls @ 420 mls/hr IV Q12H [facility] Stop: 06/04/23 09:59 Norepinephrine Bitartrate (Levophed/D5w) 4 mg in 250 mls @ 16.781 mls/hr IV .[id number] [facility]; Protocol Stop: 06/03/23 21:59 Thiamine HCl 500 mg/ Sodium (Chloride) 55 mls @ 210 mls/hr IV Q8H [facility] Stop: 06/04/23 03:59 Levalbuterol HCl (Levalbuterol 1.25 Mg/3 Ml Neb) 1.25 mg INH Q4H PRN PRN Reason: Dyspnea Stop: 06/03/23 20:09 Miscellaneous (Icu Protocol For Hyperglycemia) 1 each N/A ACHS [facility] Stop: 05/06/23 20:59 Miscellaneous ([facility] Electrolyte Replacement Protocol) 1 each N/A BID@06,18 [facility]; Protocol Stop: 01/04/24 05:59 Propofol (Propofol Bolus From Bag) 20 mg IV Q5M PRN PRN Reason: Sedation Stop: 05/07/23 19:11 Coding Level of Care Code 21951 CRITICAL CARE 1ST 30-74M Additional Critical Care Time Additional 30min Critical Care Time: Yes - 57840 x 3 (90 addl min) Total Critical Care Time: 90 Diagnoses Seizure-like activity R56.9 ETOH abuse F10.10 Anoxic brain injury G93.1 Hemorrhagic stroke I61.9 Hypokalemia E87.6 Alcohol use disorder F10.90 Cardiac arrest I46.9 Thrombocytopenia D69.6 Abnormal LFTs R79.89 Metabolic acidosis E87.20 Additional Codes Critical Care Time - Additional 30min Critical Care Time: Yes - 53220 x 3 (90 addl min) ([id number])
--- NOTE | 2023-05-04 20:10 | Procedure Note ---
Procedure Note Date of Service May 04, 2023 Note FEMORAL VEIN CENTRAL LINE PROCEDURE NOTE: Procedure: FEMORAL VEIN Central Line Placement Proceduralist: Brad HUNT ([facility]) Attending: Dr. Brasher Indication: Central Drug Administration, Poor Venous Access, Multiple Lab Draws Necessary, etc. Anesthesia: [x]Lidocaine 1% Verbal Consent was obtained from at bedside, as delegated to me by Dr. Brasher. As this was emergent with her poor access and increasing vasopressor support. Indication, risks, and benefits were explained at length. A time-out was completed verifying correct patient, procedure, site, positioning, and implants(s) or special equipment if applicable. Patients RIGHT GROIN was cleansed and draped in the typical sterile fashion using to include clipping and Chloraprep. The RIGHT FEMORAL Vein and FEMORAL Artery were identified using ultrasound. The superficial tissue was anesthetized using 5 mL of 1% lidocaine without epinephrine under direct visualization with the ultrasound. After adequate anesthetization was achieved, the FEMORAL vein was cannulated under direct ultrasound guidance using an introducer needle on a syringe. Good venous blood return was maintained prior to removal of syringe from introducer needle. Using Seldinger Technique, a guide wire was advanced through the introducer needle without resistance. The introducer needle was removed and ultrasound images were obtained of the guide wire within the FEMORAL Vein; images were not saved to the permanent record. A small incision was made in penetrating fashion at the guide wire insertion site utilizing an 11 blade scalpel. The dilator was advanced to the vessel without resistance. The dilator was exchanged for the triple lumen catheter which was advanced into the vessel without resistance. The guide wire was removed intact from the catheter without issue. Claves were placed on each catheter tip with confirmation of good blood flow from each lumen. Each port was easily flushed with sterile saline. The catheter was placed at 20 cm and sutured in place. BioPatch was applied to the catheter and a sterile Tegaderm dressing was applied over the catheter with careful attention to sterility. Patient tolerated procedure well. No immediate complications were met. Procedural Ultrasound Guidance: Procedure Date: 04MAY2023 Indication: Direct Visualization for Central Line Placement Proceduralist: Brad HUNT Attending: Dr. Brasher Artery AND Vein visualized: YES Compressible Vein: YES Guidewire or Short Catheter seen in vein prior to dilation: YES Images obtained are NOT saved for permanent record. Coding CPT Codes Tubes, Drains, and Vasc Access - Tubes, Drains, and Vasc Access: [id number] Insertion Of Non-tunneled Catheter Age 3 Yrs> ([id number]) [facility] [place] Procedure Codes (Charges) Tubes, Drains, and Vasc Access Procedure 1: Tubes, Drains, and Vasc Access: [id number] Insertion Of Non-tunneled Catheter Age 3 Yrs>
--- NOTE | 2023-05-04 20:10 | Procedure Note ---
Procedure Note Date of Service May 04, 2023 Note ARTERIAL LINE PROCEDURE NOTE: Procedure: Arterial Line Placement Proceduralist: Brad HUNT ([facility]) Attending: Dr. Brasher Indication: Monitoring on Pressors Anesthesia: [x]Lidocaine 1% Verbal Consent was obtained by at bedside as delegated to me by Dr. Brasher, as this was emergent in setting of severe acidosis and increasing vasopressor requirements. Indication, risks, and benefits were explained at length. A time-out was completed verifying correct patient, procedure, site, positioning, and implant(s) or special equipment if applicable. Allens test was performed to ensure adequate perfusion. Patients RIGHT wrist was prepped and draped in the usual sterile fashion. Ultrasound guidance was used to aid needle placement. A 20g Arrow arterial line was introduced into the RIGHT RADIAL artery x1 attempt. Catheter was threaded, and the needle was removed with appropriate blood return. Good waveform was observed. The patient tolerated the procedure well. Small hematoma was present at end of procedure- will monitor. Waveform and blood return are brisk. Left Radial Arterial Line was attempted x2 with failed attempts secondary to inability to maintain blood flow/spasm- pressure was held and no hematoma. Left side was aborted and right side was obtained x1 attempt Blood Loss: Minimal Complications: Hematoma at insertion site Procedural Ultrasound Guidance: Procedure Date: 04MAY2023 Indication: Direct Visualization for arterial line access Proceduralist: Brad Cruz Attending: Dr. Brasher Artery Identified: YES Complications: None immediate Patient tolerated procedure: small hematoma at right insertion site Coding CPT Codes Tubes, Drains, and Vasc Access - Tubes, Drains, and Vasc Access: [id number] Arterial Cath/Cannulation Sampling/Monitoring/Transfusion ([id number]) [facility] [place] Procedure Codes (Charges) Tubes, Drains, and Vasc Access Procedure 1: Tubes, Drains, and Vasc Access: [id number] Arterial Cath/Cannulation Sampling/Monitoring/Transfusion
[2023-05-04] MEDS ORDERED: NOREPINEPHRINE/D5W 4 MG/250 ML IV ONE (20:36)
--- NOTE | 2023-05-04 20:37 | CT Scan Report ---
Exam(s): CT HEAD Without Contrast EXAM: CT Head Without Intravenous Contrast CLINICAL HISTORY: Reason for exam: cardiac arrest. TECHNIQUE: Axial computed tomography images of the head/brain without intravenous contrast. CTDI is 35.08 mGy and DLP is 546.36 mGy-cm. Automated exposure control was utilized for the study. A dose lowering technique was utilized adhering to the principles of ALARA. COMPARISON: None. FINDINGS: Brain: Symmetrical hypodensities bilateral caudate head and anterior basal ganglia. Petechial high density associated with these areas, indicating minimally hemorrhagic infarct. Symmetrical bilateral pattern of basal ganglia involvement suggests anoxic brain injury, and is in keeping with history. Loss of aranda-white differentiation is also suggested. No mass-effect or herniation. Ventricles: No hydrocephalus or midline shift. Bones/joints: No skull fracture. Soft tissues: No scalp hematoma. Sinuses: Clear. Mastoid air cells: No mastoid effusion. IMPRESSION: 1. Multiple findings including mildly hemorrhagic, symmetrical bilateral basal ganglia infarcts, and loss of aranda-white differentiation, suggests global anoxia. 2. No hydrocephalus or herniation. Electronically signed by: Nicolle Jefferson M.D. 05/04/23 20:36 PM
--- NOTE | 2023-05-04 20:47 | CT Scan Report ---
Exam(s): CTA CHEST IV Amt: 118 ml optiray 320 EXAM: CT Angiography Chest With Intravenous Contrast CLINICAL HISTORY: Reason for exam: PE. TECHNIQUE: Axial computed tomographic angiography images of the chest with intravenous contrast. CTDI is 40.61 mGy and DLP is 20.3 mGy-cm. Automated exposure control was utilized for the study. A dose lowering technique was utilized adhering to the principles of ALARA. MIP reconstructed images were created and reviewed. COMPARISON: None. FINDINGS: Pulmonary arteries: No pulmonary embolism. Aorta: No dissection or aneurysm in the ascending aorta. Lungs: ET tube in place. Reticulonodular infiltrate associated with pleural-based nodule as well as consolidation or nodular densities right middle lobe, largest nodule 1.5 cm. Mild interstitial thickening in the perihilar region particularly left lower lobe. Mild bibasilar atelectasis or infiltrate. Pleural space: Mild hemothorax right anterior chest wall. No pneumothorax. Heart: No cardiomegaly. No significant pericardial effusion. No evidence of elevated right heart pressures. Bones/joints: Fracture of the bilateral anterior 5 through 8 ribs and mild adjacent hemothorax, pattern suggestive of sequelae of chest compression, correlate clinically. No other fracture. Soft tissues: Severe low density of the liver, probable fatty infiltration. Fluid surrounding the spleen, not fully evaluated, may reflect ascites, hemoperitoneum not excluded. NG tube. Lymph nodes: No enlarged lymph nodes. IMPRESSION: 1. No pulmonary embolism. 2. Fractures of the anterior ribs bilaterally with mild localized right anterior chest wall hemothorax. 3. No pneumothorax. 4. Probable cirrhosis with ascites, though the upper abdomen is not fully evaluated, and hemoperitoneum is not excluded. Electronically signed by: Nicolle Jefferson M.D. 05/04/23 20:46 PM
[2023-05-04] MEDS ORDERED: ENOXAPARIN INJ 40 MG/0.4 ML SYR SQ SCH (21:00)
[2023-05-04] MEDS ORDERED: ICU Protocol for HYPERglycemia SCH (21:00)
[2023-05-04] MEDS ORDERED: POTASSIUM CHLORIDE 20 MEQ/15 ML UDC PO STA (21:21)
[2023-05-04 21:22] LABS: BUN Creatinine Ratio 15.6 (10-20); Calcium 6.9 mg/dl (8.6-10.3); Creatinine Clr Calc Pharmacy 103.9 ml/min; Est GFR (African American) 109.3 ml/min; Est GFR (Non-African American) 94.3 ml/min; Potassium 2.2 mmol/L (3.5-5.1); Troponin I High Sensitivity 2854.1 pg/ml (0-14)
[2023-05-04] MEDS ORDERED: PHYTONADIONE 10 MG in DEXTROSE 5% 50 ML IV ONE (21:30)
[2023-05-04] MEDS: LACTATED RINGER'S 1,000 ML IV SCH (21:34)
[2023-05-04] MEDS: VASOPRESSIN 20 UNITS in 0.9 % SODIUM CHLORIDE 100 ML IV SCH (21:35)
[2023-05-04] MEDS ORDERED: LACTATED RINGER'S 500 ML IV ONE (21:40)
[2023-05-04] MEDS: POTASSIUM CHLORIDE / WTR 20 MEQ/100 ML PLCT IV SCH ×3 (21:42→23:35)
[2023-05-04] MEDS ORDERED: SODIUM CHLORIDE 0.9% 250 ML IV PRN (21:46)
--- NOTE | 2023-05-04 22:09 | Billing Data ---
Date of Service May 04, 2023 Coding Level of Care Code 09202 CRITICAL CARE
[2023-05-04] MEDS ORDERED: SEVERE STRESS LEVEL ONE (23:53)
[2023-05-04] MEDS ORDERED: INSULIN PROTOCOL GOAL RANGE ONE (23:53)
[2023-05-05] MEDS ORDERED: cefTRIAXone SODIUM 2,000 MG in DEXTROSE 5 % MINI-B 50 ML IV SCH
[2023-05-05] MEDS ORDERED: INSULIN REGULAR 250 UNITS in SODIUM CHLORIDE 0.9% 247.5 ML IV SCH (00:15)
[2023-05-05] MEDS ORDERED: NovoLIN-R BOLUS FROM BAG IV ONE ×2 (00:15)
[2023-05-05] MEDS ORDERED: CARBOHYDRATES FOR HYPOGLYCEMIA PO PRN (00:30)
[2023-05-05] MEDS ORDERED: GLUCAGON FOR INJ 1 MG VIAL IM PRN (00:30)
[2023-05-05] MEDS ORDERED: DEXTROSE 50% 50 ML SYRINGE IV PRN (00:30)
[2023-05-05] MEDS ORDERED: GLUCOSE 10 TAB/TUBE PO PRN (00:30)
[2023-05-05] MEDS ORDERED: GLUCOSE 40% GEL 15 GM TUBE PO PRN (00:30)
[2023-05-05] MEDS: propofoL 1,000 MG/100 ML VIAL IV SCH ×3 (00:36→08:54)
[2023-05-05] MEDS: NOREPINEPHRINE/D5W 4 MG/250 ML PLCT IV SCH ×3 (00:38→05:38)
[2023-05-05] MEDS: EPINEPHrine/NSS 4 MG/254 ML BAG IV SCH ×2 (00:39→10:13)
[2023-05-05] MEDS: POTASSIUM CHLORIDE / WTR 20 MEQ/100 ML PLCT IV SCH ×3 (00:39→13:27)
[2023-05-05 01:17] LABS: iSTAT Art Bld Gas pCO2 Correct 23 mmHg (35-46); iSTAT Arterial Blood Gas HCO3 16 meg/L (19-24); iSTAT Arterial Blood Gas pCO2 25 mmHg (35-46); iSTAT Arterial Blood Gas pH 7.41 (7.35-7.45); iSTAT Arterial Blood Gas pO2 136 mmHg (80-95); iSTAT Arterial Blood Gas pO2 C 126; iSTAT Carbon Dioxide 16 mmol/L (24-31); iSTAT FiO2 40 %; iSTAT Hematocrit 22 % (37-47); iSTAT Hemoglobin 7.5 g/dl (12.0-16.0); iSTAT Potassium 3.9 mmol/L (3.3-5.0); iSTAT Site Art Line; iSTAT Sodium 131 mmol/L (135-144)
[2023-05-05 01:17] LABS: iSTAT Art Bld Gas pCO2 Correct 26 mmHg (35-46); iSTAT Art Bld Gas pH Corrected 7.415 (7.35-7.45); iSTAT Arterial Blood Gas HCO3 17 meg/L (19-24); iSTAT Arterial Blood Gas pCO2 28 mmHg (35-46); iSTAT Arterial Blood Gas pH 7.39 (7.35-7.45); iSTAT Arterial Blood Gas pO2 69 mmHg (80-95); iSTAT Arterial Blood Gas pO2 C 62; iSTAT Carbon Dioxide 18 mmol/L (24-31); iSTAT FiO2 30 %; iSTAT Hematocrit 20 % (37-47); iSTAT Hemoglobin 6.8 g/dl (12.0-16.0); iSTAT Potassium 4.1 mmol/L (3.3-5.0); iSTAT Site Art Line; iSTAT Sodium 131 mmol/L (135-144)
[2023-05-05 01:22] LABS: Amphetamines+Metham, Urine Neg (Neg); Barbiturates, Urine Neg (Neg); Benzodiazepine, Urine Pos (Neg); Cocaine, Urine Neg (Neg); MDMA (Ecstacy), Urine Neg (Neg); Marijuana, Urine Neg (Neg); Methadone, Urine Neg (Neg); Opiate, Urine Neg (Neg); Phencyclidine, Urine Neg (Neg)
[2023-05-05] MEDS ORDERED: OPTIRAY 320 500ml IV ONE (01:58)
[2023-05-05] MEDS ORDERED: ALBUMIN 5% 250 ML IV ONE (02:53)
[2023-05-05] MEDS ORDERED: SODIUM BICARB 8.4% INJ 50 MEQ/50 ML SYR IV STA (03:04)
[2023-05-05] MEDS ORDERED: CALCIUM CHLORIDE 10% 1,000 MG in DEXTROSE 5% 50 ML IV STA (03:04)
[2023-05-05] MEDS ORDERED: SODIUM BICARB 8.4% INJ 50 MEQ/50 ML SYR IV ONE ×2 (03:05→19:59)
[2023-05-05] MEDS ORDERED: CALCIUM CHLORIDE 10% 10 ML SYR IV ONE ×2 (03:07→19:59)
[2023-05-05] MEDS ORDERED: SODIUM CHLORIDE 0.9% 250 ML IV PRN ×2 (03:39→04:55)
[2023-05-05 03:40] LABS: Basophils % (auto) 0.2 %; Hematocrit (blood only) 18.5 % (37.0-47.0); Hemoglobin 6.3 g/dl (12.0-16.0); Lymphocytes % (auto) 5.2 %; Mean Corpuscular Hemoglobin 34.2 pg (25.0-34.0); Mean Corpuscular Hgb Conc 34.1 g/dL (32.0-36.0); Mean Corpuscular Volume 100.5 fL (80.0-100.0); Mean Platelet Volume 10.3 fL (9.4-12.4); Monocytes % (auto) 5.3 %; Neutrophils % (auto) 88.3 %; Platelet Count 104 K/uL (130-400); RDW Coefficient of Variation 11.8 % (11.5-14.5); Red Blood Count 1.84 M/uL (4.20-5.40); White Blood Count 14.53 K/ul (4.8-10.8)
[2023-05-05 03:41] LABS: BUN Creatinine Ratio 20.8 (10-20); Basophils # (auto) 0.03 K/uL (0.00-0.20); Calcium 7.6 mg/dl (8.6-10.3); Creatinine Clr Calc Pharmacy 92.4 ml/min; Est GFR (African American) 102.6 ml/min; Est GFR (Non-African American) 88.5 ml/min; Immature Granulocytes # (auto) 0.15 K/uL (0.01-0.20); Lymphocytes # (auto) 0.75 K/uL (1.20-3.40); Monocytes # (auto) 0.77 K/uL (0.11-0.59); Neutrophils # (auto) 12.83 K/uL (1.40-6.50); Phosphorus 3.2 mg/dl (2.5-4.9); Polychromasia 1+; Potassium 3.8 mmol/L (3.5-5.1)
[2023-05-05] MEDS: THIAMINE HCL 500 MG in SODIUM CHLORIDE 0.9% 50 ML IV SCH ×2 (03:44→13:27)
[2023-05-05 03:47] LABS: Albumin Level 2.6 gm/dl (3.4-5.0); Bilirubin Direct 0.3 mg/dl (0-0.2); Bilirubin,Total 0.7 mg/dl (0.2-1.0); Total Protein 4.8 gm/dl (6.0-8.3)
[2023-05-05 04:07] LABS: INR 1.6 (0.9-1.1); Prothrombin Time 17.1 Seconds (9.0-12.0)
--- NOTE | 2023-05-05 04:21 | CT Scan Report ---
Exam(s): CT ABDOMEN + PELVIS With Contrast IV Amt: 84ml optiray EXAM: CT Abdomen and Pelvis With Intravenous Contrast CLINICAL HISTORY: Reason for exam: eval for evidence of bleeding/infarcted bowl. TECHNIQUE: Axial computed tomography images of the abdomen and pelvis with intravenous contrast. CTDI is 26.62 mGy and DLP is 1299.73 mGy-cm. Automated exposure control was utilized for the study. A dose lowering technique was utilized adhering to the principles of ALARA. Moderate breathing motion artifact. CONTRAST: Patient received 84ml optiray of IV contrast COMPARISON: CTA chest done earlier. FINDINGS: Lung bases: Progressive bibasilar atelectasis or infiltrate. Liver: Diffuse liver disease, possible cirrhosis. There is contrast extravasation along the left lobe liver, coronal series 300, images 23-25, consider IR for embolization. Gallbladder and bile ducts: Gallstones versus gallbladder wall calcification versus artifact. Moderate distended gallbladder with surrounding fluid, nonspecific in the presence of ascites/hemoperitoneum. Acute gallbladder disease is not excluded. No ductal dilation. Pancreas: No ductal dilation. Spleen: Unremarkable. Adrenals: Unremarkable. Kidneys and ureters: No pyelonephritis or hydronephrosis. Stomach and bowel: No obstruction. Diverticulosis without acute diverticulitis. No wall thickening, pneumatosis, dilatation to suggest ischemic bowel. Appendix: No acute appendicitis. Intraperitoneal space: No free air. High density ascites, probable hemoperitoneum, likely arising from the liver. Bones/joints: No acute fracture. Soft tissues: Unremarkable. Vasculature: No aortic aneurysm. Lymph nodes: No enlarged lymph nodes. Bladder: No stones. Reproductive: Unremarkable as visualized. IMPRESSION: 1. Moderate hemoperitoneum with extravasation from the left lobe liver, consider IR consultation for further evaluation. 2. Possible cholelithiasis, distended gallbladder and pericholecystic fluid, nonspecific. Acute gallbladder disease not excluded. 3. Progressive bibasilar atelectasis or infiltrate. 4. No findings to suggest ischemic bowel. Communications: Call Doctor Above results Electronically signed by: Nicolle Jefferson M.D. 05/05/23 04:20 AM
[2023-05-05] MEDS: MAX Conc; 32mg in 250mL IV SCH ×2 (04:45→15:39)
--- NOTE | 2023-05-05 04:52 | Communication Note ---
Date of Service: May 05, 2023 0200- Patient with decrease in HGB count and increasing in vasopressor requirements. CT abdomen/pelvis obtained with IV contrast evaluate for hemorrhage or ischemia in bowel. Abdomen remains soft, no blood coming from OGT or in the way of stool. No hematoma at access site and no bruising at flank. Continue with supportive blood transfusion while awaiting CT read. - HGB return at 6.3 will transfuse 2 units PRBC and CRYO for fibrinogen <150, - Re-check INR - CT read back from STAT rad around 0430- Moderate hemoperitoneum with extravasation from the left lobe of liver. - We do not have IR capabilities at this institution, will attempt to contact IR at [facility] vs. [facility] [place] vs. [facility]- Air transport at this time may also be limited by fog/rain. - [facility] with her strong possibility of cirrhosis and if IR fails or is unable to control recommended transplant be available. Awaiting return call from [facility] pres. - Discussed case with Dr. Small [facility] ICU attending and IR at [facility]- recommends obtaining CTA of abdomen and pelvis to eval if able to intervene via IR- call back once study completed/interpreted - CTA completed- remains with active extravasation Left lobe of liver with increase hemoperitoneum- call back to [facility] Pres- Dr. Small and IR [phone] awaiting return call. - Transfuse 1 more unit of PRBC for hypotension and increase in vasopressors - Case signed out to attending Dr. Brasher [phone]. - Complicating the patient's case is s/p cardiac arrest with strong suspicion of anoxic brain injury, elevated troponin, and likely acute on chronic liver failure. With active bleeding and transfusion requirements unable to hepranize in regards to elevated troponin. I have tried multiple attempts to get in touch with family with listed number on chart. I have been unable to get in touch with them for over 2 hours.
[2023-05-05] MEDS: VASOPRESSIN 20 UNITS in 0.9 % SODIUM CHLORIDE 100 ML IV SCH ×2 (05:34→13:26)
[2023-05-05] MEDS: LACTATED RINGER'S 1,000 ML IV SCH ×2 (05:34→13:31)
[2023-05-05] MEDS: ICU ELECTROLYTE REPLACEMENT PROTOCOL SCH ×2 (05:47→16:20)
[2023-05-05] MEDS ORDERED: OPTIRAY 320 125ml IV ONE (06:20)
--- NOTE | 2023-05-05 06:35 | CT Scan Report ---
Exam(s): CTA ABDOMEN + PELVIS With Contrast IV Amt: 117 ML OPTIRAY 320 EXAM: CT Angiography Abdomen and Pelvis With Intravenous Contrast CLINICAL HISTORY: Evaluate for extravasation of left liver lobe. TECHNIQUE: Axial computed tomographic angiography images of the abdomen and pelvis with intravenous contrast. CTDI is 26.74 mGy and DLP is 1346.35 mGy-cm. Automated exposure control was utilized for the study. A dose lowering technique was utilized adhering to the principles of ALARA. MIP reconstructed images were created and reviewed. CONTRAST: Patient received 117 ML OPTIRAY 320 of IV contrast COMPARISON: CT abdomen and pelvis 05/05/2023. FINDINGS: VASCULATURE: Aorta: Mild atherosclerosis. Mild atherosclerosis of the aorta without significant stenosis. No abdominal aortic aneurysm. No dissection. Celiac trunk and mesenteric arteries: Minimal atherosclerosis of the celiac artery. The SMA and GERONIMO are within normal limits without significant stenosis. Renal arteries: There is minimal atherosclerosis of the origin of the left renal artery. The right renal artery is unremarkable. No occlusion or significant stenosis. Iliac arteries: No acute findings. No occlusion or significant stenosis. Lung bases: Bibasilar airspace opacities may represent atelectasis, less likely atypical infection/aspiration. Pleural space: Small bilateral pleural effusions. ABDOMEN: Liver: Fatty infiltration of the liver. Gallbladder and bile ducts: Gallbladder wall prominence is nonspecific. No calcified stones. Pancreas: Unremarkable. No ductal dilation. No mass. Spleen: Unremarkable. No splenomegaly. Adrenals: Unremarkable. No mass. Kidneys and ureters: Unremarkable. No hydronephrosis. No solid mass. Stomach and bowel: Diverticulosis. No obstruction. No mucosal thickening. PELVIS: Appendix: No findings to suggest acute appendicitis. Bladder: Unremarkable. No mass. Reproductive: Unremarkable as visualized. ABDOMEN and PELVIS: Intraperitoneal space: Unchanged active extravasation of the left lobe of the liver. There is now worsening hemoperitoneum. No free air. Bones/joints: There are degenerative changes spine. No acute fracture. Soft tissues: Unremarkable. Lymph nodes: Unremarkable. No enlarged lymph nodes. IMPRESSION: 1. Unchanged active extravasation of the left lobe of the liver. There is now worsening hemoperitoneum. Again, IR consultation is recommended. 2. Fatty infiltration of the liver. 3. Gallbladder wall prominence is nonspecific. 4. Small bilateral pleural effusions. 5. Diverticulosis. Communications: Call Doctor Above results Electronically signed by: Liz Mays MD 05/05/23 06:34 AM
[2023-05-05] MEDS ORDERED: ICU Protocol for HYPERglycemia SCH ×2 (07:30→18:00)
--- NOTE | 2023-05-05 07:39 | Critical Care Progress Note ---
Date of Service May 05, 2023 Assessment & Plan (1) Cardiac arrest: (2) Alcohol use disorder: (3) Thrombocytopenia: (4) Abnormal LFTs: (5) ETOH abuse: (6) Seizure-like activity: (7) Anoxic brain injury: (8) Hemorrhagic stroke: (9) Hypokalemia: (10) Metabolic acidosis: Plan ICU CONSULT NOTE FORMAT: Reason Critically Ill: 62 YOF with out of hospital cardiac arrest which appears to be secondary to seizure activity following self withdraw from ETHO. She is currently with concern for hemorrhagic CVA of basal ganglia and concern for anoxic brain injury, requiring vasopressor support. Neuro - Seizure activity in setting of ETOH withdrawl, Concern for anoxic/hemorrhagic brain injury CAM ICU: Unable to assess Propofol for sedation - Patient presents as cardiac arrest from home with reported seizure activity as the pre-cursor with limb stiffening and sonorous respirations. - CT of head performed non-con with concern for anoxic injury- this would be a very poor prognostication for meaningful neurological recovery - Currently with GCS 3T with pinpoint pupils - Will obtain EEG in morning, continue with propofol for sedation and seizure prophy - Continue with Keppra for the time being - Maintain NORMOTHERMIA in setting of active bleed - basal ganglial Hemorrhagic CVA not favored by independent read at [facility] via Dr. Jovan Wagoner- Neurology - Tox screen positive only for benzos -Continue thiamine 500mg IV q8 hours Cardiac - Shock, Cardiac Arrest, Elevated HsCTNI - Shock unspecified at this time-likely from hemorrhage as well as cardiac - Continue with vasopressor support to keep MAP greater than 65 Random cortisol 20.59 Cardiology on board Respiratory - Respiratory failure requiring intubation and mechanical ventilation - In the setting of presumed seizure like activity -- Small bilateral pleural effusion No need for any intervention right now GI - Cirrhosis, transaminitis - Patient without recent baseline LFTS- however she is currently with elevated LFTs, alteration on mentation, and INR of 1.4 - 2 FFP, Vitamin K 10mg IVx1 given --Acute extravasation from the left lobe of the liver Patient actively bleeding in the belly [facility] by [facility], [place] have been notified, awaiting a callback RENAL/LYTES - AGAP Metabolic Acidosis, Lactic Acidosis, HYPOkalemia - Continue with LR and vasopressor support - Thiamine 500mg IV now - Lactate continues to increase- however this makes difficult in setting of liver injury, epinephrine infusion, and overall shock state - Lamb to gravity - Continue while intubated ENDO - Hyperglycemia without diagnosis of diabetes - ICU hyperglycemia protocol HEME - Thrombocytopenia, anemia - Likely secondary to ETOH misuse -Patient got 3 units of PRBC, 1 unit platelet, 2 units FFP and 1 of cryo --Coagulopathy Likely from underlying cirrhosis Continue to monitor ID - Can't exclude septic etiology at this time however other causes more likely - blood cultures x2 Family: Family has been updated on likelihood of anoxic brain injury and relative prognostication findings at this time. I have discussed possible hemorrhage with neurology and less favorable. They understand that there is likely a poor outcome, however would like to continue down the prognostication pathway and obtain more information and wake up in the morning before coming to decision regarding goals of care. Currently remains FULL CODE --Prophylaxis VTE: IPC GI: Pantoprazole Lines: Femoral central Diet: N.p.o. Plan: In/out: +5.6 L, urine output [id number] [facility] Jeff followed by [facility], [place] have been notified. Dr. Maldonado did call back around 7:40 AM from [facility] from [place]. There was confusion who is on-call close as per Dr. Maldonado he is not on-call and that should be somebody named Patrick Moore should be contacted. The transfer center Keli from [facility] was on-call and he said he is going to sort this out and give us a call back I was able to call the patient's and speak with him as well. Potassium and magnesium being replaced I will get an MRI of the brain stat given the pupils being dilated and patient not having gag or cough reflex. 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 Overall prognosis is guarded I have personally spent 65 minutes of critical care time in the direct management of this patient. This is a life/limb threatening event. This includes time spent evaluating patient, direct bedside care, chart review, placing orders, interpretation of diagnostic studies, discussion with consultants, patient, and family members, as well as other required patient management activities. This time is exclusive of all separately billable procedures, and teaching time and separate from and in addition to any other critical care service time. Please note the above document was generated using voice recognition software. It may contain grammatical, syntax or spelling errors. Admission and Anticipated Discharge Date Admission Date: May 04, 2023 Subjective Patient seen and examined at bedside. She was on Levophed 0.46, vasopressin 0.04, propofol 20 at the time of examination. She was breathing over the vent. Temperature was around 37. She was getting her fourth unit of PRBC. Not following any commands. Review of Systems 2 Review of Systems: Unobtainable due to endotracheal tube Physical Exam 2 Physical Exam: Constitutional: No acute distress HEENT: Fixed dilated pupils bilaterally Respiratory system: Decreased air entry bilaterally, no wheeze, no rhonchi, positive crackles bilateral lower lobes CVS: S1-S2 positive, no murmurs or gallops, tachycardia Abdomen: Soft, nontender, nondistended, positive bowel sounds x4, obese Extremities: + 1 pulses bilaterally radialis/ dorsalis pedis, no cyanosis, no edema Neuro: Intubated and sedated, no gag, no cough, no pupillary or corneal reflex Psych: Unable to assess G/U: Positive Lamb Skin: no rashes, warm and dry Lymphatic: no cervical or axillary lymphadenopathy Results & Data Results & Data Vital Signs (Past 12 Hours) Vital Signs Temp Pulse Pulse Resp BP BP Pulse Ox 05/05/23 07:27 36.5 C 119 H 20 81/55 L 100 05/05/23 07:07 36.4 C L 120 H 20 86/58 L 100 05/05/23 05:45 36.0 C L 117 H 20 100 05/05/23 05:45 35.9 C L 116 H 24 115/70 100 05/05/23 05:30 36.0 C L 116 H 20 100 05/05/23 05:26 35.9 C L 116 H 24 115/70 100 05/05/23 05:25 35.9 C L 117 H 21 100 05/05/23 05:21 35.9 C L 117 H 20 112/70 100 05/05/23 05:20 35.9 C L 116 H 30 H 100 05/05/23 05:15 35.9 C L 118 H 22 100 05/05/23 05:10 35.9 C L 121 H 24 100 05/05/23 05:05 35.8 C L 125 H 26 H 100 05/05/23 05:00 117/87 05/05/23 05:00 35.8 C L 126 H 25 H 100 05/05/23 04:55 35.8 C L 127 H 27 H 100 05/05/23 04:53 35.8 C L 127 H 20 125/74 100 05/05/23 04:53 35.8 C L 128 H 24 121/73 100 05/05/23 04:50 35.8 C L 128 H 23 100 05/05/23 04:45 35.8 C L 128 H 25 H 100 05/05/23 04:40 35.8 C L 130 H 24 100 05/05/23 04:35 35.8 C L 130 H 20 98 05/05/23 04:33 35.8 C L 130 H 20 65/43 L 99 05/05/23 04:30 35.8 C L 134 H 20 100 05/05/23 04:25 35.8 C L 135 H 29 H 100 05/05/23 04:20 35.7 C L 136 H 28 H 100 05/05/23 04:15 35.7 C L 136 H 26 H 100 05/05/23 04:05 133 H 26 H 100 05/05/23 04:00 97/62 L 05/05/23 04:00 35.7 C L 136 H 26 H 100 05/05/23 04:00 05/05/23 03:45 35.7 C L 132 H 30 H 100 05/05/23 03:30 35.6 C L 132 H 27 H 100 05/05/23 03:15 35.6 C L 130 H 22 100 05/05/23 03:00 86/62 L 05/05/23 03:00 35.6 C L 126 H 24 100 05/05/23 02:48 90/64 L 05/05/23 02:48 35.5 C L 125 H 24 100 05/05/23 02:45 35.5 C L 124 H 30 H 100 05/05/23 02:30 35.4 C L 122 H 29 H 98 05/05/23 02:15 35.4 C L 120 H 22 100 05/05/23 02:10 122 H 6 L 94 05/05/23 01:45 125 H 27 H 94 05/05/23 01:30 35.5 C L 126 H 22 95 05/05/23 01:24 20 05/05/23 01:15 35.4 C L 123 H 30 H 93 05/05/23 01:00 05/05/23 01:00 94/72 L 05/05/23 01:00 35.4 C L 122 H 24 94 05/05/23 00:45 35.3 C L 121 H 21 95 05/05/23 00:40 35.3 C L 121 H 24 95 05/05/23 00:35 35.3 C L 121 H 24 94 05/05/23 00:30 35.3 C L 118 H 25 H 95 05/05/23 00:25 35.3 C L 118 H 24 95 05/05/23 00:20 35.3 C L 117 H 24 94 05/05/23 00:16 35.3 C L 115 H 24 118/70 95 05/05/23 00:15 35.3 C L 117 H 24 95 05/05/23 00:10 35.2 C L 117 H 24 95 05/05/23 00:05 35.2 C L 117 H 24 94 05/05/23 00:00 05/05/23 00:00 117 H 05/05/23 00:00 131/89 05/05/23 00:00 35.2 C L 116 H 24 95 05/04/23 23:58 35.3 C L 115 H 24 118/70 95 05/04/23 23:57 35.3 C L 115 H 24 118/70 95 05/04/23 23:55 35.3 C L 117 H 24 96 05/04/23 23:50 35.3 C L 117 H 24 96 05/04/23 23:47 35.3 C L 116 H 24 116/70 96 05/04/23 23:45 35.3 C L 115 H 24 97 05/04/23 23:40 35.3 C L 115 H 24 96 05/04/23 23:35 35.3 C L 115 H 24 97 05/04/23 23:30 35.3 C L 110 H 24 100 05/04/23 23:29 35.4 C L 110 H 20 119/71 100 05/04/23 23:26 35.4 C L 112 H 20 119/71 100 05/04/23 23:25 35.4 C L 111 H 28 H 100 05/04/23 23:20 35.4 C L 110 H 28 H 100 05/04/23 23:15 111 H 24 98 05/04/23 23:15 35.5 C L 112 H 28 H 100 05/04/23 23:15 126/92 05/04/23 23:13 35.5 C L 113 H 20 116/69 100 05/04/23 23:12 123/94 05/04/23 23:12 35.5 C L 114 H 28 H 100 05/04/23 23:10 127/88 05/04/23 23:10 35.5 C L 115 H 28 H 100 05/04/23 23:07 108/87 05/04/23 23:07 35.5 C L 116 H 28 H 100 05/04/23 23:05 111/85 05/04/23 23:05 35.5 C L 116 H 28 H 100 05/04/23 23:02 112/81 05/04/23 23:02 35.5 C L 116 H 28 H 100 05/04/23 23:00 112/83 05/04/23 23:00 35.5 C L 116 H 28 H 100 05/04/23 22:57 115/82 05/04/23 22:57 35.5 C L 114 H 28 H 100 05/04/23 22:56 35.6 C L 115 H 20 105/64 114 H 05/04/23 22:55 113/82 05/04/23 22:55 35.5 C L 115 H 28 H 100 05/04/23 22:54 35.6 C L 116 H 20 108/65 100 05/04/23 22:52 111/89 05/04/23 22:52 35.5 C L 115 H 28 H 100 05/04/23 22:50 115/84 05/04/23 22:50 35.5 C L 116 H 28 H 100 05/04/23 22:47 106/82 05/04/23 22:47 35.5 C L 117 H 28 H 100 05/04/23 22:46 35.6 C L 114 H 20 106/64 100 05/04/23 22:45 95/74 L 05/04/23 22:45 35.5 C L 117 H 28 H 100 05/04/23 22:42 35.5 C L 117 H 28 H 99 05/04/23 22:42 95/67 L 05/04/23 22:40 35.5 C L 119 H 28 H 100 05/04/23 22:40 89/64 L 05/04/23 22:37 85/64 L 05/04/23 22:37 35.5 C L 118 H 28 H 100 05/04/23 22:35 35.5 C L 117 H 28 H 100 05/04/23 22:35 87/66 L 05/04/23 22:32 90/67 L 05/04/23 22:32 35.5 C L 119 H 28 H 100 05/04/23 22:31 35.5 C L 116 H 20 104/64 100 05/04/23 22:30 35.5 C L 119 H 28 H 100 05/04/23 22:30 88/64 L 05/04/23 22:27 86/65 L 05/04/23 22:27 35.5 C L 117 H 28 H 100 05/04/23 22:25 35.5 C L 118 H 28 H 100 05/04/23 22:25 87/65 L 05/04/23 22:22 83/61 L 05/04/23 22:22 35.5 C L 120 H 28 H 100 05/04/23 22:20 84/60 L 05/04/23 22:20 35.5 C L 121 H 28 H 100 05/04/23 22:17 94/54 L 05/04/23 22:17 35.6 C L 121 H 28 H 05/04/23 22:15 76/58 L 05/04/23 22:15 35.6 C L 120 H 28 H 100 05/04/23 22:12 82/60 L 05/04/23 22:12 35.6 C L 120 H 28 H 74 L 05/04/23 22:11 35.6 C L 119 H 20 82/60 L 99 05/04/23 22:10 72/57 L 05/04/23 22:10 35.6 C L 117 H 28 H 100 05/04/23 22:07 35.6 C L 117 H 28 H 100 05/04/23 22:07 83/61 L 05/04/23 22:05 94/64 L 05/04/23 22:05 35.6 C L 117 H 28 H 100 05/04/23 22:02 87/69 L 05/04/23 22:02 35.6 C L 117 H 28 H 100 05/04/23 22:00 95/68 L 05/04/23 22:00 35.6 C L 115 H 28 H 100 05/04/23 21:57 92/71 L 05/04/23 21:57 35.6 C L 115 H 28 H 100 05/04/23 21:55 108/75 05/04/23 21:55 35.7 C L 115 H 28 H 100 05/04/23 21:52 109/80 05/04/23 21:52 35.7 C L 116 H 28 H 100 05/04/23 21:50 115/78 05/04/23 21:50 35.7 C L 117 H 28 H 100 05/04/23 21:47 102/86 05/04/23 21:47 35.7 C L 120 H 28 H 100 05/04/23 21:45 35.8 C L 119 H 28 H 100 05/04/23 21:45 108/82 05/04/23 21:42 106/73 05/04/23 21:42 35.8 C L 118 H 28 H 100 05/04/23 21:40 105/71 05/04/23 21:40 35.8 C L 117 H 28 H 100 05/04/23 20:19 110 H 28 H 100 05/04/23 20:10 35.4 C L 112 H 24 100 05/04/23 20:10 05/04/23 20:10 117 H 05/04/23 20:00 35.4 C L 112 H 16 105/71 100 Pulse Ox O2 Del Method O2 Del Method O2 Flow Rate FiO2 05/05/23 07:27 05/05/23 07:07 05/05/23 05:45 05/05/23 05:45 05/05/23 05:30 05/05/23 05:26 05/05/23 05:25 05/05/23 05:21 05/05/23 05:20 05/05/23 05:15 05/05/23 05:10 05/05/23 05:05 05/05/23 05:00 05/05/23 05:00 05/05/23 04:55 05/05/23 04:53 05/05/23 04:53 05/05/23 04:50 05/05/23 04:45 05/05/23 04:40 05/05/23 04:35 05/05/23 04:33 05/05/23 04:30 05/05/23 04:25 05/05/23 04:20 05/05/23 04:15 05/05/23 04:05 40 05/05/23 04:00 05/05/23 04:00 05/05/23 04:00 40 05/05/23 03:45 05/05/23 03:30 05/05/23 03:15 05/05/23 03:00 05/05/23 03:00 05/05/23 02:48 05/05/23 02:48 05/05/23 02:45 05/05/23 02:30 05/05/23 02:15 05/05/23 02:10 05/05/23 01:45 05/05/23 01:30 05/05/23 01:24 30 05/05/23 01:15 05/05/23 01:00 30 05/05/23 01:00 05/05/23 01:00 05/05/23 00:45 05/05/23 00:40 05/05/23 00:35 05/05/23 00:30 05/05/23 00:25 05/05/23 00:20 05/05/23 00:16 05/05/23 00:15 05/05/23 00:10 05/05/23 00:05 05/05/23 00:00 30 05/05/23 00:00 05/05/23 00:00 05/05/23 00:00 05/04/23 23:58 05/04/23 23:57 05/04/23 23:55 05/04/23 23:50 05/04/23 23:47 05/04/23 23:45 05/04/23 23:40 05/04/23 23:35 05/04/23 23:30 05/04/23 23:29 05/04/23 23:26 05/04/23 23:25 05/04/23 23:20 05/04/23 23:15 30 05/04/23 23:15 05/04/23 23:15 05/04/23 23:13 05/04/23 23:12 05/04/23 23:12 05/04/23 23:10 05/04/23 23:10 05/04/23 23:07 05/04/23 23:07 05/04/23 23:05 05/04/23 23:05 05/04/23 23:02 05/04/23 23:02 05/04/23 23:00 05/04/23 23:00 05/04/23 22:57 05/04/23 22:57 05/04/23 22:56 05/04/23 22:55 05/04/23 22:55 05/04/23 22:54 05/04/23 22:52 05/04/23 22:52 05/04/23 22:50 05/04/23 22:50 05/04/23 22:47 05/04/23 22:47 05/04/23 22:46 05/04/23 22:45 05/04/23 22:45 05/04/23 22:42 05/04/23 22:42 05/04/23 22:40 05/04/23 22:40 05/04/23 22:37 05/04/23 22:37 05/04/23 22:35 05/04/23 22:35 05/04/23 22:32 05/04/23 22:32 05/04/23 22:31 05/04/23 22:30 05/04/23 22:30 05/04/23 22:27 05/04/23 22:27 05/04/23 22:25 05/04/23 22:25 05/04/23 22:22 05/04/23 22:22 05/04/23 22:20 05/04/23 22:20 05/04/23 22:17 05/04/23 22:17 05/04/23 22:15 05/04/23 22:15 05/04/23 22:12 05/04/23 22:12 05/04/23 22:11 05/04/23 22:10 05/04/23 22:10 05/04/23 22:07 05/04/23 22:07 05/04/23 22:05 05/04/23 22:05 05/04/23 22:02 05/04/23 22:02 05/04/23 22:00 05/04/23 22:00 05/04/23 21:57 05/04/23 21:57 05/04/23 21:55 05/04/23 21:55 05/04/23 21:52 05/04/23 21:52 05/04/23 21:50 05/04/23 21:50 05/04/23 21:47 05/04/23 21:47 05/04/23 21:45 05/04/23 21:45 05/04/23 21:42 05/04/23 21:42 05/04/23 21:40 05/04/23 21:40 05/04/23 20:19 40 05/04/23 20:10 Mechanical Vent 40 05/04/23 20:10 94 Mechanical Vent 30 05/04/23 20:10 05/04/23 20:00 Mechanical Vent Laboratory Results 05/05/23 03:00 05/05/23 03:00 Coding Level of Care Code 83251 CRITICAL CARE 1ST 30-74M Diagnoses Cardiac arrest I46.9 Alcohol use disorder F10.90 Thrombocytopenia D69.6 Abnormal LFTs R79.89 ETOH abuse F10.10 Seizure-like activity R56.9 Anoxic brain injury G93.1 Hemorrhagic stroke I61.9 Hypokalemia E87.6 Metabolic acidosis E87.20
--- NOTE | 2023-05-05 07:57 | XRay Report ---
XR chest 1V portable CLINICAL HISTORY: Intubation. Evaluate lines and tubes. COMPARISON STUDY: Chest CT and chest radiograph May 04, 2023. FINDINGS: Tip of endotracheal tube is 3 cm above the annmarie. Tip of nasogastric tube is below the low er aspect of this image but at least within the body of the stomach. There is no pneumothorax. Small bilateral pleural effusions are present. Multiple acute bilateral rib fractures are better depicted o n chest CT. There is mild interstitial thickening. Old distal left clavicular injury/AC joint disloca tion is incidentally noted. IMPRESSION: 1. Satisfactory positioning of the endotracheal and nasogastric tubes. 2. No pneumothorax. Small bilateral pleural effusions. Multiple acute bilateral rib fractures better depicted on chest CT. 3. Interstitial thickening suggestive of mild pulmonary edema. ACT 112: Negative or not required by law. Electronically signed by: Vaughn Robledo M.D. 05/05/2023 7:55 AM
[2023-05-05] MEDS: INSULIN ASPART PER UNIT CHARGE SC SCH ×2 (08:54→11:05)
[2023-05-05 09:06] LABS: BUN Creatinine Ratio 22.1 (10-20); Calcium 8.3 mg/dl (8.6-10.3); Creatinine Clr Calc Pharmacy 97.6 ml/min; Est GFR (African American) 107.1 ml/min; Est GFR (Non-African American) 92.4 ml/min; Potassium 3.5 mmol/L (3.5-5.1)
[2023-05-05] MEDS: MAGNESIUM SULFATE / D5W 1 GM/100 ML BAG IV SCH ×2 (09:11→11:03)
[2023-05-05] MEDS ORDERED: levETIRAcetam 1,000 MG in 0.9 % SODIUM CHLORIDE 100 ML IV SCH (10:00)
[2023-05-05] MEDS ORDERED: PANTOprazole 40 MG in SYRINGE 0 ML IV SCH (11:00)
[2023-05-05] MEDS: CALCIUM GLUCONATE 10% 1,000 MG in NS X2 BAGS IV SCH ×2 (11:03→11:31)
--- NOTE | 2023-05-05 12:06 | XCELERA ---
[id number] \\[email or web address]\[id number]
--- NOTE | 2023-05-05 12:16 | Electroencephalogram ---
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 Medication List Medication Instructions Recorded Confirmed Type multivitamin 1 tab PO QAM #0 tabs 10/02/14 01/24/20 History Quercetin 1,000 mg PO DAILY 01/24/20 01/24/20 History cholecalciferol (vitamin D3) 10 10 mcg PO DAILY 01/24/20 01/24/20 History mcg (400 unit) tablet gabapentin 300 mg capsule 300 mg PO HS 01/24/20 01/24/20 History hydroxyzine pamoate 50 mg capsule 50 mg PO TID PRN Anxiety 01/24/20 01/24/20 History oxycodone 5 mg tablet 5 mg PO Q4H PRN pain #15 tabs 01/24/20 Rx zinc 50 mg tablet 50 mg PO DAILY 01/24/20 01/24/20 History Unobtainable 05/04/23 05/04/23 History Inpatient Medication List Propofol (Diprivan) 1,000 mg in 100 mls @ 0 mls/hr IV .Q0M [facility]; Protocol Stop: 05/07/23 19:14 Last Titration: 05/05/23 09:00 Dose: 0 mcg/kg/min, 0 mls/hr Documented By: Admin: 05/05/23 08:54 Dose: Not Given Documented By: Titration: 05/05/23 08:45 Dose: 10 mcg/kg/min, 5.4 mls/hr Documented By: Titration: 05/05/23 08:30 Dose: 15 mcg/kg/min, 8.1 mls/hr Documented By: Titration: 05/05/23 08:15 Dose: 20 mcg/kg/min, 10.7 mls/hr Documented By: Titration: 05/05/23 08:00 Dose: 25 mcg/kg/min, 13.4 mls/hr Documented By: Titration: 05/05/23 07:45 Dose: 30 mcg/kg/min, 16.1 mls/hr Documented By: Titration: 05/05/23 07:20 Dose: 35 mcg/kg/min, 18.8 mls/hr Documented By: Titration: 05/05/23 07:11 Dose: 40 mcg/kg/min, 21.5 mls/hr Documented By: SARTHAK Co-signed By: EULOGIO Admin: 05/05/23 05:35 Dose: 40 mcg/kg/min, 21.5 mls/hr Documented By: CP Co-signed By: SARTHAK Titration: 05/05/23 05:16 Dose: Infused Documented By: CP Co-signed By: TLM Admin: 05/05/23 00:36 Dose: 40 mcg/kg/min, 21.5 mls/hr Documented By: TLM Co-signed By: CP Titration: 05/05/23 00:36 Dose: Infused Documented By: TLM Co-signed By: CP Admin: 05/04/23 19:25 Dose: 30 mcg/kg/min, 16.1 mls/hr Documented By: TIFFANI Co-signed By: BEATRIZ Pantoprazole Sodium 40 mg/ (Syringe) 10 mls @ 5 mls/min IV DAILY@1100 [facility] Stop: 06/04/23 10:59 Last Admin: 05/05/23 09:11 Dose: 5 mls/min Documented By: EULOGIO Vasopressin 20 units/ Sodium (Chloride) 101 mls @ 12.12 mls/hr IV .Q8H20M [facility] Stop: 06/03/23 21:29 Last Infusion: 05/05/23 07:11 Dose: 0.04 unit/min, 12.1 mls/hr Documented By: SARTHAK Co-signed By: EULOGIO Admin: 05/05/23 05:34 Dose: 0.04 unit/min, 12.1 mls/hr Documented By: CP Co-signed By: TLM Infusion: 05/05/23 05:34 Dose: Infused Documented By: CP Co-signed By: AQUILINOM Admin: 05/04/23 21:35 Dose: 0.04 unit/min, 12.1 mls/hr Documented By: AQUILINOM Co-signed By: LUIS Lactated Ringer's (Lr) 1,000 mls @ 125 mls/hr IV .Q8H [facility] Stop: 06/03/23 21:29 Last Admin: 05/05/23 05:34 Dose: 125 mls/hr Documented By: Infusion: 05/05/23 05:34 Dose: Infused Documented By: Admin: 05/04/23 21:34 Dose: 125 mls/hr Documented By: SARTHAK Levetiracetam 1,000 mg/ Sodium (Chloride) 110 mls @ 420 mls/hr IV Q12H [facility] Stop: 06/04/23 09:59 Last Infusion: 05/05/23 09:39 Dose: Infused Documented By: Admin: 05/05/23 09:11 Dose: 420 mls/hr Documented By: EULOGIO Thiamine HCl 500 mg/ Sodium (Chloride) 55 mls @ 210 mls/hr IV Q8H [facility] Stop: 06/04/23 03:59 Last Infusion: 05/05/23 04:00 Dose: Infused Documented By: Admin: 05/05/23 03:44 Dose: 210 mls/hr Documented By: SARTHAK Ceftriaxone Sodium 2,000 mg/ (Dextrose) 50 mls @ 100 mls/hr IV Q24H [facility]; Protocol Stop: 05/06/23 23:59 Last Infusion: 05/05/23 01:12 Dose: Infused Documented By: Admin: 05/05/23 00:32 Dose: 100 mls/hr Documented By: SARTHAK Insulin Human Regular 250 (units/ Sodium Chloride) 250 mls @ 2.4 mls/hr IV .Q24H [facility]; Protocol Stop: 06/04/23 00:14 Last Titration: 05/05/23 09:55 Dose: 2.4 units/hr, 2.4 mls/hr Documented By: EULOGIO Co-signed By: MIRANDA Titration: 05/05/23 08:30 Dose: 3 units/hr, 3 mls/hr Documented By: EULOGIO Co-signed By: CALLIW Titration: 05/05/23 07:30 Dose: 3.8 units/hr, 3.8 mls/hr Documented By: EULOGIO Co-signed By: CRW Titration: 05/05/23 07:11 Dose: 4.7 units/hr, 4.7 mls/hr Documented By: SARTHAK Co-signed By: EULOGIO Titration: 05/05/23 06:37 Dose: 4.7 units/hr, 4.7 mls/hr Documented By: SARTHAK Co-signed By: CP Titration: 05/05/23 05:30 Dose: 5.9 units/hr, 5.9 mls/hr Documented By: TLM Co-signed By: CP Titration: 05/05/23 04:30 Dose: 5.9 units/hr, 5.9 mls/hr Documented By: TLM Co-signed By: CP Titration: 05/05/23 03:30 Dose: 5.9 units/hr, 5.9 mls/hr Documented By: CP Co-signed By: TMG Titration: 05/05/23 02:30 Dose: 4.9 units/hr, 4.9 mls/hr Documented By: CP Co-signed By: TMG Titration: 05/05/23 01:08 Dose: 4.1 units/hr, 4.1 mls/hr Documented By: TLM Co-signed By: CP Admin: 05/05/23 00:33 Dose: 3.4 units/hr, 3.4 mls/hr Documented By: TLM Co-signed By: LUIS Norepinephrine Bitartrate (Levophed/D5w) 32 mg in 250 mls @ 15.942 mls/hr IV .[id number] [facility]; Protocol Stop: 06/04/23 04:14 Last Titration: 05/05/23 11:31 Dose: 0.38 mcg/kg/min, 15.9 mls/hr Documented By: Titration: 05/05/23 11:12 Dose: 0.4 mcg/kg/min, 16.8 mls/hr Documented By: Titration: 05/05/23 10:06 Dose: 0.42 mcg/kg/min, 17.6 mls/hr Documented By: Titration: 05/05/23 07:45 Dose: 0.44 mcg/kg/min, 18.5 mls/hr Documented By: Titration: 05/05/23 07:30 Dose: 0.42 mcg/kg/min, 17.6 mls/hr Documented By: Titration: 05/05/23 07:11 Dose: 0.4 mcg/kg/min, 16.8 mls/hr Documented By: TLM Co-signed By: HLK Titration: 05/05/23 06:51 Dose: 0.35 mcg/kg/min, 14.7 mls/hr Documented By: Admin: 05/05/23 04:45 Dose: 0.6 mcg/kg/min, 25.2 mls/hr Documented By: TLM Co-signed By: LUIS Potassium Chloride (K Jay / Wtr) 20 meq in 100 mls @ 50 mls/hr IV Q2H [facility] Stop: 05/05/23 14:14 Last Admin: 05/05/23 11:03 Dose: 50 mls/hr Documented By: EULOGIO Insulin Aspart (Insulin Aspart Per Unit Charge) 0 units SC ACHS [facility] Stop: 06/04/23 07:29 Last Admin: 05/05/23 11:05 Dose: Not Given Documented By: Admin: 05/05/23 08:54 Dose: Not Given Documented By: SKYEK Miscellaneous (Icu Electrolyte Replacement Protocol) 1 each N/A BID@06,18 [facility]; Protocol Stop: 05/12/23 05:59 Last Admin: 05/05/23 05:47 Dose: Not Given Documented By: LUIS Discontinued Medications Calcium Chloride (Calcium Chloride 10% 10 Ml Syr) Confirm Administered Dose 1,000 mg IV .STK-MED ONE Stop: 05/05/23 03:08 Last Admin: 05/05/23 03:25 Dose: Not Given Documented By: LUIS Dextrose (Dextrose 50% 50 Ml Syringe) 50 ml IV NOW ONE Stop: 05/04/23 17:30 Last Admin: 05/04/23 17:31 Dose: 50 ml Documented By: AM Enoxaparin Sodium (Enoxaparin Inj 40 Mg/0.4 Ml Syr) 40 mg SQ Q24H [facility] Stop: 06/03/23 20:59 Last Admin: 05/04/23 23:28 Dose: Not Given Documented By: TLM Epinephrine HCl () 4 mg in 254 mls @ 34.1 mls/hr IV .Q7H27M [facility]; Protocol Stop: 06/03/23 17:29 Last Admin: 05/05/23 10:13 Dose: Not Given Documented By: Admin: 05/05/23 00:39 Dose: Not Given Documented By: Titration: 05/04/23 21:45 Dose: Infused Documented By: Titration: 05/04/23 18:28 Dose: 0.18 mcg/kg/min, 61.4 mls/hr Documented By: Titration: 05/04/23 18:17 Dose: 0.2 mcg/kg/min, 68.2 mls/hr Documented By: Titration: 05/04/23 18:14 Dose: 0.25 mcg/kg/min, 85.2 mls/hr Documented By: Titration: 05/04/23 17:53 Dose: 0.3 mcg/kg/min, 102.3 mls/hr Documented By: Titration: 05/04/23 17:52 Dose: 0.2 mcg/kg/min, 68.2 mls/hr Documented By: Admin: 05/04/23 17:36 Dose: 0.1 mcg/kg/min, 34.1 mls/hr Documented By: AM Co-signed By: ASW Sodium Chloride (Nss) 1,000 mls @ 999 mls/hr IV .Q1H1M [facility] Stop: 05/04/23 18:23 Last Infusion: 05/04/23 18:30 Dose: Infused Documented By: Admin: 05/04/23 17:15 Dose: 999 mls/hr Documented By: AM Magnesium Sulfate/Dextrose (Magnesium Sulfate / D5w) 1 gm in 100 mls @ 200 mls/hr IV Q30M [facility] Stop: 05/04/23 18:25 Last Infusion: 05/05/23 00:40 Dose: Infused Documented By: Admin: 05/04/23 18:48 Dose: 200 mls/hr Documented By: Infusion: 05/04/23 18:48 Dose: Infused Documented By: Admin: 05/04/23 18:20 Dose: 200 mls/hr Documented By: AM Sodium Bicarbonate 150 meq/ (Dextrose) 1,150 mls @ 125 mls/hr IV .Q9H12M [facility] Stop: 06/03/23 17:44 Last Infusion: 05/05/23 00:41 Dose: Infused Documented By: Admin: 05/04/23 18:14 Dose: 125 mls/hr Documented By: AM Potassium Chloride (K Jay / Wtr) 10 meq in 100 mls @ 100 mls/hr IV Q1H [facility] Stop: 05/04/23 20:44 Last Infusion: 05/05/23 00:41 Dose: Infused Documented By: Admin: 05/04/23 20:00 Dose: 100 mls/hr Documented By: Infusion: 05/04/23 19:49 Dose: Infused Documented By: Admin: 05/04/23 18:49 Dose: 100 mls/hr Documented By: AM Thiamine HCl 500 mg/ Sodium (Chloride) 55 mls @ 210 mls/hr IV NOW STA Stop: 05/04/23 19:28 Last Infusion: 05/04/23 21:49 Dose: Infused Documented By: Admin: 05/04/23 21:31 Dose: 210 mls/hr Documented By: TLM Phytonadione 10 mg/ Dextrose 51 mls @ 102 mls/hr IV ONE ONE Stop: 05/04/23 21:59 Last Infusion: 05/05/23 00:40 Dose: Infused Documented By: Admin: 05/04/23 21:45 Dose: 102 mls/hr Documented By: TLM Potassium Chloride (K Jay / Wtr) 20 meq in 100 mls @ 100 mls/hr IV Q1H [facility] Stop: 05/05/23 01:29 Last Infusion: 05/05/23 03:17 Dose: Infused Documented By: Admin: 05/05/23 00:39 Dose: 100 mls/hr Documented By: Infusion: 05/05/23 00:35 Dose: Infused Documented By: Admin: 05/04/23 23:35 Dose: 100 mls/hr Documented By: TLWin Infusion: 05/04/23 23:35 Dose: Infused Documented By: Admin: 05/04/23 22:51 Dose: 100 mls/hr Documented By: Infusion: 05/04/23 22:42 Dose: Infused Documented By: Admin: 05/04/23 21:42 Dose: 100 mls/hr Documented By: TLWin Lactated Ringer's (Lr) 500 mls @ 999 mls/hr IV .Q31M ONE Stop: 05/04/23 22:10 Last Infusion: 05/05/23 00:40 Dose: Infused Documented By: Admin: 05/04/23 22:08 Dose: 999 mls/hr Documented By: TLWin Levetiracetam 2,000 mg/ Sodium (Chloride) 270 mls @ 999 mls/hr IV NOW STA Stop: 05/04/23 22:10 Last Infusion: 05/05/23 00:40 Dose: Infused Documented By: TLWin Admin: 05/04/23 23:08 Dose: 999 mls/hr Documented By: TLM Norepinephrine Bitartrate (Levophed/D5w) 4 mg in 250 mls @ 201.375 mls/hr IV .Q1H15M [facility]; Protocol Stop: 06/03/23 21:59 Last Admin: 05/05/23 05:38 Dose: Not Given Documented By: Titration: 05/05/23 05:37 Dose: Infused Documented By: Titration: 05/05/23 03:57 Dose: 0.6 mcg/kg/min, 201.4 mls/hr Documented By: Admin: 05/05/23 03:04 Dose: 0.5 mcg/kg/min, 167.8 mls/hr Documented By: TLM Co-signed By: CP Titration: 05/05/23 03:04 Dose: Infused Documented By: TLM Co-signed By: CP Titration: 05/05/23 02:40 Dose: 0.35 mcg/kg/min, 117.5 mls/hr Documented By: Titration: 05/05/23 01:29 Dose: 0.3 mcg/kg/min, 100.7 mls/hr Documented By: Titration: 05/05/23 01:21 Dose: 0.2 mcg/kg/min, 67.1 mls/hr Documented By: Admin: 05/05/23 00:38 Dose: 0.17 mcg/kg/min, 57.1 mls/hr Documented By: TLM Co-signed By: CP Albumin Human (Albumin 5%) 250 mls @ 500 mls/hr IV ONE ONE Stop: 05/05/23 03:22 Last Infusion: 05/05/23 03:30 Dose: Infused Documented By: Admin: 05/05/23 03:02 Dose: 500 mls/hr Documented By: TLM Calcium Chloride 1,000 mg/ (Dextrose) 60 mls @ 240 mls/hr IV NOW STA Stop: 05/05/23 03:18 Last Infusion: 05/05/23 03:30 Dose: Infused Documented By: Admin: 05/05/23 03:11 Dose: 240 mls/hr Documented By: TLM Magnesium Sulfate/Dextrose (Magnesium Sulfate / D5w) 1 gm in 100 mls @ 50 mls/hr IV Q2H [facility] Stop: 05/05/23 11:59 Last Admin: 05/05/23 11:03 Dose: 50 mls/hr Documented By: Infusion: 05/05/23 11:03 Dose: Infused Documented By: Admin: 05/05/23 09:11 Dose: 50 mls/hr Documented By: EULOGIO Calcium Gluconate 1,000 mg/ (Sodium Chloride) 60 mls @ 240 mls/hr IV Q15M [facility] Stop: 05/05/23 10:59 Last Admin: 05/05/23 11:31 Dose: 240 mls/hr Documented By: Infusion: 05/05/23 11:18 Dose: Infused Documented By: Admin: 05/05/23 11:03 Dose: 240 mls/hr Documented By: EULOGIO Insulin Human Regular (Novolin-R Insulin Per Unit Charge) 10 units IV NOW [facility]A Stop: 05/04/23 17:30 Last Admin: 05/04/23 17:34 Dose: 10 units Documented By: JACKELINE Co-signed By: HIPOLITO Insulin Human Regular (Novolin-R Bolus From Bag) 3.5 units IV ONE ONE Stop: 05/05/23 00:16 Last Admin: 05/05/23 00:34 Dose: 3.5 units Documented By: SARTHAK Co-signed By: LUIS Ioversol (Optiray 320 125ml) 118 ml IV ONCE ONE Stop: 05/04/23 19:53 Last Admin: 05/04/23 19:52 Dose: 118 ml Documented By: SHAHEEN Ioversol (Optiray 320 500ml) 100 ml IV ONCE ONE Stop: 05/05/23 01:59 Last Admin: 05/05/23 01:59 Dose: 84 ml Documented By: ROBSON Ioversol (Optiray 320 125ml) 125 ml IV ONCE ONE Stop: 05/05/23 06:21 Last Admin: 05/05/23 06:20 Dose: 117 ml Documented By: ROBSON Midazolam HCl (Midazolam Hcl 5 Mg/Ml 2ml Vial) 3 mg IV NOW STA Stop: 05/04/23 19:27 Last Admin: 05/04/23 20:19 Dose: 3 mg Documented By: LUIS Miscellaneous (Stat Iv Infusion Titration Per Protocol) 1 each N/A NOW STA Stop: 05/04/23 17:22 Last Admin: 05/04/23 18:17 Dose: Not Given Documented By: AM Miscellaneous (Stat Iv Infusion Titration Per Protocol) 1 each N/A NOW STA Stop: 05/04/23 17:26 Last Admin: 05/04/23 18:32 Dose: Not Given Documented By: AM Miscellaneous (Icu Protocol For Hyperglycemia) 1 each N/A ACHS [facility] Stop: 05/06/23 20:59 Last Admin: 05/05/23 00:46 Dose: Not Given Documented By: CP Norepinephrine Bitartrate (Norepinephrine/D5w 4 Mg/250 Ml) Confirm Administered Dose 4 mg IV .STK-MED ONE Stop: 05/04/23 20:37 Last Admin: 05/04/23 21:33 Dose: 4 mg Documented By: TLM Propofol (Propofol Iv Emulsion 10 Mg/Ml 100 Ml Vial) Confirm Administered Dose 1,000 mg IV .STK-MED ONE Stop: 05/04/23 19:04 Last Admin: 05/04/23 19:25 Dose: Not Given Documented By: HJW Sodium Bicarbonate (Sodium Bicarb 8.4% Inj 50 Meq/50 Ml Syr) 50 meq IV NOW STA Stop: 05/04/23 17:30 Last Admin: 05/04/23 17:30 Dose: 50 meq Documented By: AM Sodium Bicarbonate (Sodium Bicarb 8.4% Inj 50 Meq/50 Ml Syr) 50 meq IV NOW STA Stop: 05/05/23 03:05 Last Admin: 05/05/23 03:10 Dose: 50 meq Documented By: TLM Sodium Bicarbonate (Sodium Bicarb 8.4% Inj 50 Meq/50 Ml Syr) Confirm Administered Dose 50 meq IV .STK-MED ONE Stop: 05/05/23 03:06 Last Admin: 05/05/23 03:25 Dose: Not Given Documented By: CP Sodium Zirconium Cyclosilicate (Sodium Zirconium Cyclosilicate 10 Gm Packet) 10 gm GT NOW STA Stop: 05/04/23 17:48 Last Admin: 05/04/23 17:55 Dose: 10 gm Documented By: AM Description This is a 21 electrode EEG with a single channel dedicated to limited EKG. The electrodes were placed in accordance with the International 10-20 system. This EEG was obtained with the patient in the intensive care unit, on mechanical ventilator. There is a low amplitude disorganized background rhythm with intermittent rare 10 Hz activity. There is continuous bilateral high-frequency beta activity. There is no focal slowing. There are no epileptiform abnormalities. There are no periodic discharges. Photic stimulation is unremarkable. Hyperventilation not performed. Interpretation Abnormal awake/drowsy EEG with significant reduction in background amplitude and lack of a normal posterior dominant rhythm. Findings consistent with anoxic encephalopathy. No epileptiform abnormalities. [facility] EEG Procedure Codes Indication for Procedure (1) Anoxic brain injury: Neurology Neurology: 15626 EEG include record awake & drowsy
--- NOTE | 2023-05-05 12:21 | Cardiology Consultation ---
Date of Consultation May 05, 2023 Assessment & Plan (1) Elevated troponin: This is secondary to type II non-ST elevation TX. Probably from hypoperfusion (cardiac arrest), cardiomyopathy, hypoxia, etc. Given very and very questionable likelihood of meaningful neurologic recovery cardiac catheteriza tion is contraindicated at this time. If she should regain consciousness with appropriate neurologic recovery then cardiac catheterization to evaluate for occlusive coronary disease is reasonable at that time. (2) Cardiac arrest: Complex arrhythmia picture. Unfortunately I do not have all of the rhythm strips to evaluate but it sounds like she had polymorphic VT, unclear what her original rhythm was identified as a shockable rhythm by the AED, and had asystole on arrival. She also has severely reduced LV systolic function which may be secondary to the cardiac arrest or causative of the cardiac arrest. Difficult to know. Supportive care with vasopressors as needed, maintain pH and electrolytes within normal limits, antiarrhythmics (amiodarone) as needed, and eventually may benefit from beta-isabelle if tolerated by blood pressure and heart rate. (3) Cardiomyopathy: Undetermined etiology at this time. May be purely secondary to cardiac arrest. However, given her longstanding alcohol abuse problem with associated cirrhosis I would suspect it may be secondary to alcohol abuse. In that case, cardiac arrest was likely secondary to alcohol withdrawal in the setting of poor cardiac function and hypokalemia. Certainly would recommend exclusion of multivessel coronary disease (ischemic cardiomyopathy) in the future if she has significant neurologic recovery. Once her acute issues such as liver hemorrhage have been rectified then would at minimum initiate guideline directed medical therapy for chronic heart failure with reduced ejection fraction including heart failure indicated beta-isabelle, Entresto, SGLT2 inhibitor, and loop diuretic plus or minus spironolactone. Plan Note: A total of 75 minutes was spent on the review of records, evaluation of the patient including examination, discussion with the care team including the ER physician and nursing, review of the imaging studies, review of the EKGs, formulation and implementation of a plan of care and all associated documentation. History of Present Illness Reason for Consultation: Cardiac arrest Attending Physician: Joe Lucia History of Present Illness 62-year-old female with a history of alcoholic cirrhosis and chronic alcohol abuse. Unfortunately, her primary care provider is outside of our system and her regular doctor visit notes are unavailable at this time. I was called regarding the patient having "cardiac arrest". Evidently, patient had decided to stop drinking. She began to have alcohol withdrawal symptoms but refused to come to the hospital. Her family found her unresponsive with "seizure-like activity". EMS was called and initial resuscitative efforts included defibrillation by the AED. Reportedly, at some point she had torsades in the route to the hospital by EMS and was again shocked. Unclear how many shocks she received but in the emergency department here she was found to be in asystole. CPR was initiated and she eventually was resuscitated to sinus tachycardia with a wide-complex QRS. She was intubated. Initially was reported as unresponsive despite lack of sedative medications. I reviewed her EKG which showed wide-complex tachycardia most consistent with metabolic derangement/electrolyte abnormalities. Her troponin was found to be elevated. Her potassium was found to be very low. Patient was subsequently admitted to the intensive care unit. At the time of my evaluation the patient remains intubated and sedated. Thus far, workup suggest significant metabolic derangement likely secondary to withdrawal from alcohol. Possible withdrawal induced seizure. Some question regarding intracranial hemorrhage although a second review of imaging by outside radiologist felt that this was unlikely. She is also been identified to have hemorrhage from her liver. At this point, request has been made for transfer to a higher level of care given her multiple problems and recommendation for IR treatment of her liver hemorrhaging with hemoperitoneum and lack of interventional radiology service at this facility. Patient underwent echocardiogram. Briefly, this demonstrated severe LV systolic dysfunction with global hypokinesis and akinesis of the apex and septum. Allergies Allergy/AdvReac Type Severity Reaction Status Date / Time cephalexin Allergy Intermediate HIVES Verified 05/05/23 08:27 nafcillin Allergy Unknown unknown Verified 05/05/23 08:27 Benzodiazepines AdvReac Severe CHANGE IN Verified 05/05/23 08:27 MENTAL STATUS tramadol AdvReac Unknown HALLUCINATI Unverified 05/05/23 08:27 ONS Home Medications Medication Instructions Recorded Confirmed Type multivitamin 1 tab PO QAM #0 tabs 10/02/14 01/24/20 History Quercetin 1,000 mg PO DAILY 01/24/20 01/24/20 History cholecalciferol (vitamin D3) 10 10 mcg PO DAILY 01/24/20 01/24/20 History mcg (400 unit) tablet gabapentin 300 mg capsule 300 mg PO HS 01/24/20 01/24/20 History hydroxyzine pamoate 50 mg capsule 50 mg PO TID PRN Anxiety 01/24/20 01/24/20 History oxycodone 5 mg tablet 5 mg PO Q4H PRN pain #15 tabs 01/24/20 Rx zinc 50 mg tablet 50 mg PO DAILY 01/24/20 01/24/20 History Unobtainable 05/04/23 05/04/23 History Patient History Medical History (Updated 05/05/23 @ 12:16 by Kvng Phillips MD, PhD) ETOH abuse Seizure (12/06/13) Right foot pain Osteomyelitis Leg pain, right Leg pain, right Hypokalemia Dehydration Alcohol withdrawal Family History Other Heart disease Hypertension Social History Smoking Status: Unknown if ever smoked Preferred Language: [place] Communication Ability: Unable Fly Tier Required: No Beliefs That Will Affect Care: None marital status: Current Living Situation: Spouse Current Living Situation Comment: Feels safe at home current occupational status: unemployed Other Information That Helps Us Care for You: Yes (etoh abuse) Feels Safe at Home: Yes Review of Systems Review of Systems: Unobtainable. Physical Exam Constitutional: Critically ill-appearing intubated middle-age female. Neck: No JVD Respiratory: Ventilator sounds. No crackles. Cardiovascular: Regular rhythm. Tachycardic rate. S4 gallop. No murmurs appreciated. Neurologic: Intubated and sedated Results & Data Vital Signs (Past 12 Hours) Vital Signs Temp Pulse Resp BP Pulse Ox FiO2 05/05/23 11:36 37.4 C 91 H 24 101/74 98 05/05/23 10:25 37.2 C 103 H 25 H 90/57 L 99 05/05/23 10:00 40 05/05/23 09:55 37.1 C 109 H 20 103/58 L 99 05/05/23 09:40 108 H 26 H 99 40 05/05/23 09:40 37 C 109 H 20 100/63 99 05/05/23 09:40 37 C 109 H 20 100/63 99 05/05/23 09:22 36.9 C 110 H 20 88/57 L 100 05/05/23 08:45 36.8 C 104 H 20 94/62 L 100 05/05/23 08:12 36.7 C 116 H 20 89/59 L 100 05/05/23 08:00 119 H 05/05/23 07:42 36.5 C 117 H 20 97/65 L 100 05/05/23 07:32 115 H 21 100 40 05/05/23 07:27 36.5 C 119 H 20 81/55 L 100 05/05/23 07:07 36.4 C L 120 H 20 86/58 L 100 05/05/23 05:45 36.0 C L 117 H 20 100 05/05/23 05:45 35.9 C L 116 H 24 115/70 100 05/05/23 05:30 36.0 C L 116 H 20 100 05/05/23 05:26 35.9 C L 116 H 24 115/70 100 05/05/23 05:25 35.9 C L 117 H 21 100 05/05/23 05:21 35.9 C L 117 H 20 112/70 100 05/05/23 05:20 35.9 C L 116 H 30 H 100 05/05/23 05:15 35.9 C L 118 H 22 100 05/05/23 05:10 35.9 C L 121 H 24 100 05/05/23 05:05 35.8 C L 125 H 26 H 100 05/05/23 05:00 117/87 05/05/23 05:00 35.8 C L 126 H 25 H 100 05/05/23 04:55 35.8 C L 127 H 27 H 100 05/05/23 04:53 35.8 C L 127 H 20 125/74 100 05/05/23 04:53 35.8 C L 128 H 24 121/73 100 05/05/23 04:50 35.8 C L 128 H 23 100 05/05/23 04:45 35.8 C L 128 H 25 H 100 05/05/23 04:40 35.8 C L 130 H 24 100 05/05/23 04:35 35.8 C L 130 H 20 98 05/05/23 04:33 35.8 C L 130 H 20 65/43 L 99 05/05/23 04:30 35.8 C L 134 H 20 100 05/05/23 04:25 35.8 C L 135 H 29 H 100 05/05/23 04:20 35.7 C L 136 H 28 H 100 05/05/23 04:15 35.7 C L 136 H 26 H 100 05/05/23 04:05 133 H 26 H 100 40 05/05/23 04:00 97/62 L 05/05/23 04:00 35.7 C L 136 H 26 H 100 05/05/23 04:00 40 05/05/23 03:45 35.7 C L 132 H 30 H 100 05/05/23 03:30 35.6 C L 132 H 27 H 100 05/05/23 03:15 35.6 C L 130 H 22 100 05/05/23 03:00 86/62 L 05/05/23 03:00 35.6 C L 126 H 24 100 05/05/23 02:48 90/64 L 05/05/23 02:48 35.5 C L 125 H 24 100 05/05/23 02:45 35.5 C L 124 H 30 H 100 05/05/23 02:30 35.4 C L 122 H 29 H 98 05/05/23 02:15 35.4 C L 120 H 22 100 05/05/23 02:10 122 H 6 L 94 05/05/23 01:45 125 H 27 H 94 05/05/23 01:30 35.5 C L 126 H 22 95 05/05/23 01:24 20 30 05/05/23 01:15 35.4 C L 123 H 30 H 93 05/05/23 01:00 30 05/05/23 01:00 94/72 L 05/05/23 01:00 35.4 C L 122 H 24 94 05/05/23 00:45 35.3 C L 121 H 21 95 05/05/23 00:40 35.3 C L 121 H 24 95 05/05/23 00:35 35.3 C L 121 H 24 94 05/05/23 00:30 35.3 C L 118 H 25 H 95 05/05/23 00:25 35.3 C L 118 H 24 95 05/05/23 00:20 35.3 C L 117 H 24 94 05/05/23 00:16 35.3 C L 115 H 24 118/70 95 05/05/23 00:15 35.3 C L 117 H 24 95 05/05/23 00:10 35.2 C L 117 H 24 95 05/05/23 00:05 35.2 C L 117 H 24 94 PG Care Time/CCT Total # of Minutes Spent Total Time Spent with Patient: Total time spent is greater than 50% in coordination of care (as documented) at patient's floor/unit and/or counseling patient: Coding Level of Care Code 82390 INT INP/OBS CARE 3/75MIN Diagnoses Elevated troponin R79.89 Cardiac arrest I46.9 Cardiomyopathy I42.9
--- NOTE | 2023-05-05 13:12 | Magnetic Resonance Report ---
MR brain wo con HISTORY: 62 years-old Female eval for anoxic brain injury acute cardiac arrest COMPARISON: Head CT 05/04/2003 TECHNIQUE: Multiplanar multisequence MRI of the brain was obtained without the use of IV contrast. FINDINGS: There is diffusely increased diffusion-weighted signal which is homogeneous and symmetric. The most p ronounced throughout the aranda matter. Slightly decreased signal on ADC map. There is cortical expansi on with sulcal effacement resulting in effacement of the ventricles and basilar cisterns. Low lying c erebellar tonsils extend 3 mm below the foramen magnum. No significant midline shift. Blooming artifa ct is noted within the bilateral caudate nuclei, right greater than left there is a punctate increase d T1 and decreased T2 signal. Symmetrically increased T2/FLAIR signal noted throughout the basal gang kolby. Loss of the normal flow void throughout the cerebral venous sinuses and major intracranial arter ies which appears homogeneous. Secretions within the nasopharyngeal airway secondary to endotracheal tube. Trace left mastoid effusi on. Mild to moderate mucosal thickening of the paranasal sinuses. IMPRESSION: 1. 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 2. Subcentimeter microhemorrhage redemonstrated within the right caudate nucleus. 3. No significant midline shift. 4. Loss of the cerebral venous sinus and intracranial arterial flow voids, likely related to the incr eased intracranial pressure associated with the hypoxic ischemic brain injury. ACT 112: Negative or not required by law. The above report was generated using voice recognition software. It may contain grammatical, syntax o r spelling errors. Electronically signed by: Larry Roberson M.D. 05/05/2023 1:11 PM
--- NOTE | 2023-05-05 14:42 | Communication Note ---
Date of Service: May 05, 2023 Critical care addendum: I was able to speak with Dr. Sergey Sheets from [facility] presby- department around 11:15 a.m. I discussed the case with them especially the worsening of the neurological status. I did tell him that we are going to do an MRI of the brain stat to see if the prognosis which is likely going to show anoxic injury and sending the patient for any intervention would not be appropriate right now. I also discussed the MRI of the brain finding with the patient's as well as daughter at bedside. Unfortunately it does mean poor prognosis. She is still breathing over the vent. Patient's family understand the grave prognosis. They have made the patient DNR/DNI/no escalation of care. They would like to call the family and then make the decision regarding comfort measures. All questions and queries of the patient's family were answered in depth I have personally spent additional 35 minutes of critical care time in the direct management of this patient. This is a life/limb threatening event. This includes time spent evaluating patient, direct bedside care, chart review, placing orders, interpretation of diagnostic studies, discussion with consultants, patient, and family members, as well as other required patient management activities. This time is exclusive of all separately billable procedures, and teaching time and separate from and in addition to any other critical care service time. Please note the above document was generated using voice recognition software. It may contain grammatical, syntax or spelling errors. Coding Level of Care Code 94602 CRITICAL CARE EA ADD 30M
[2023-05-05 15:05] LABS: Hematocrit (blood only) 30.3 % (37.0-47.0); Hemoglobin 10.5 g/dl (12.0-16.0)
[2023-05-05] MEDS ORDERED: OXYMETAZOLINE 0.05% 30 ML BTL PRN (16:11)
[2023-05-05] MEDS ORDERED: STAT IV Infusion **Titration per Protocol STA (17:26)
[2023-05-05] MEDS ORDERED: fentaNYL BOLUS from BAG IV PRN (17:27)
[2023-05-05] MEDS ORDERED: fentaNYL citrate 2,500 MCG/250 ML BAG IV ONE (17:29)
[2023-05-05] MEDS ORDERED: EPINEPHrine/NSS 4 MG/254 ML BAG IV SCH (17:30)
[2023-05-05] MEDS ORDERED: fentaNYL citrate 2,500 MCG/250 ML BAG IV SCH (17:30)
--- NOTE | 2023-05-05 18:26 | Discharge Summary ---
Date of Service May 05, 2023 Admission HPI Per Admitting Provider The patient is a 62-year-old female with past medical history of alcohol abuse and alcohol withdrawal. She had been found unresponsive at home, with family reported that she had been going through alcohol withdrawal and had refused to come to the hospital. She was noted to have seizure-like activity while in bed, and then became unresponsive. Family called 911, and was shocked by the AED brought in by police. Upon arrival in the ED, patient was asystolic, with epinephrine IV having been administered x 4 prior to arrival. Patient had been intubated, in addition received IV bicarbonate, IV magnesium, 1 episode of torsades. She was noted to have lost pulse several times, and then remained tachycardic and referred for evaluation for medical admission to the ICU. Laboratories are still pending at the time of admission, with admission being expedited to the ICU for further care Principal Diagnosis anoxic brain injury Discharge Exam refer to note Discharge Data Allergies Allergy/AdvReac Type Severity Reaction Status Date / Time cephalexin Allergy Intermediate HIVES Verified 05/05/23 08:27 nafcillin Allergy Unknown unknown Verified 05/05/23 08:27 Benzodiazepines AdvReac Severe CHANGE IN Verified 05/05/23 08:27 MENTAL STATUS tramadol AdvReac Unknown HALLUCINATI Unverified 05/05/23 08:27 ONS Consultations 05/04/23 18:01 ED Decision to Admit Stat 05/04/23 20:10 Consult De Icer Routine 05/04/23 23:39 Consult Cardiology Routine Ordered Studies 05/04/23 18:15 CT angio chest PE protocol Stat CT head/brain wo con Stat 05/05/23 01:36 CT abd pelvis IV con only Stat 05/05/23 05:51 CT angio abdomen pelvis w con Stat 05/05/23 07:00 MR brain wo con Routine Hospital Course (1) Anoxic brain injury: (2) ETOH abuse: Plan Admit to intensive care unit status postcardiac arrest- ROSC Hypothermic protocol Continue multiple IV pressors per ICU Pantoprazole 40 mg IV daily IV fluid rehydration with lactated Ringer's normal saline with potassium Thiamine IV and folic acid IV Keppra IV for seizure prophylaxis converted to comfort measures on 05/05 Patient at 17:50 Total Time Total Time Spent Total Time Spent (In Minutes): 31 Discharge Plan Discharge Items Patient Disposition: Other Date/Time: 05/05/23 17:50 Coding Level of Care Code 02659 INP/OBS DISCH >30 MIN Diagnoses Anoxic brain injury G93.1 ETOH abuse F10.10
--- NOTE | 2023-05-05 18:26 | Death Pronouncement Note ---
Date of Service May 05, 2023 Pronouncement Note Admission Date May 04, 2023 Date and Time of Date of : 05/05/23 Time of : 17:50 Preliminary Cause of (1) Anoxic brain injury: (2) ETOH abuse: Summary refer to discharge summary Additional Data Confirmation of : no pulse, no respirations, no heart sounds and pupils fixed and dilated Pronouncement Performed By: Attending Physician Family: at bedside Attending/PCP notified?: Yes Attending physician: Joe Lucia Was code activated?: No Autopsy requested?: No Coding Level of Care Code None Diagnoses Anoxic brain injury G93.1 ETOH abuse F10.10
[2023-05-05] MEDS ORDERED: DEXTROSE 50% 50 ML SYRINGE IV ONE (19:59)
[2023-05-05] MEDS ORDERED: SODIUM CHLORIDE 0.9% PF INJ 10 ML VIAL IV ONE (19:59)
[2023-05-05] MEDS ORDERED: SODIUM CHLORIDE 0.9% 10ML FLUSH IV ONE (19:59)
[2023-05-05] MEDS ORDERED: MAG SULFATE 50% 1GM/2ML VIAL IV ONE (19:59)
[2023-05-06 14:27] LABS: 7-Aminoclonaz, Confirm NEGATIVE ng/mL (<25); Hydro-Alp Ur, GC/MS NEGATIVE ng/mL (<25); Hydroxyethylflurazepam, Conf NEGATIVE ng/mL (<50); Hydroxymidazolam Ur, GC/MS 365 ng/mL (<50); Hydroxytriazolam NEGATIVE ng/mL (<50); Lorazepam, Ur GC/MS NEGATIVE ng/mL (<50); Nordiazepam, Confirm NEGATIVE ng/mL (<50); Oxazepam Ur, GC/MS NEGATIVE ng/mL (<50); Temazepam, Confirm NEGATIVE ng/mL (<50)
--- NOTE | 2023-05-06 16:22 | Electrocardiogram Report ---
Test Reason : Blood Pressure : / mmHG Vent. Rate : 148 BPM Atrial Rate : 148 BPM P-R Int : 146 ms QRS Dur : 130 ms QT Int : 360 ms P-R-T Axes : 076 -71 130 degrees QTc Int : 565 ms Poor data quality, interpretation may be adversely affected Atrial fibrillation Left bundle branch block Abnormal ECG No previous ECGs available Confirmed by Jaspreet Rome ([id number]) on 05/06/2023 4:22:19 PM Referred By: REFERRED SELF Confirmed By:Allen Rome
--- NOTE | 2023-05-06 16:23 | Electrocardiogram Report ---
Test Reason : Blood Pressure : / mmHG Vent. Rate : 116 BPM Atrial Rate : 116 BPM P-R Int : 184 ms QRS Dur : 110 ms QT Int : 358 ms P-R-T Axes : 049 -24 125 degrees QTc Int : 497 ms Sinus tachycardia Left bundle branch block Confirmed by Jaspreet Rome ([id number]) on 05/06/2023 4:23:24 PM Referred By: REFERRED SELF Confirmed By:Allen Rome
[2023-05-09 08:52] LABS: iSTAT Arterial Blood Gas HCO3 17 meg/L (19-24); iSTAT Arterial Blood Gas pCO2 28 mmHg (35-46); iSTAT Arterial Blood Gas pH 7.39 (7.35-7.45); iSTAT Arterial Blood Gas pO2 127 mmHg (80-95); iSTAT Carbon Dioxide 17 mmol/L (24-31); iSTAT Hematocrit 15 % (37-47); iSTAT Hemoglobin 5.1 g/dl (12.0-16.0); iSTAT Potassium 3.4 mmol/L (3.3-5.0); iSTAT Sodium 131 mmol/L (135-144)
== END 2023-05-05 20:00 | disposition expired | DRG 896 ==
LOC: ED 17:13 → SUATTDRO 18:31 → 1E 18:31 → MERGE 18:31 → 1E 20:35